=== PATIENT | female | born 1950 | race African-American/Black ===

== ENCOUNTER 2016-06-14 16:45 | Inpatient (IN) | payer MEDICARE, OTHER ==
[~2016-06-14] VITALS: Ht 170.2 cm; Wt 91.2 kg
[~2016-06-14 16:45] MED LIST: ASPIRIN EC81 MG ORAL; BUPROPION XL150 MG ORAL; CARVEDILOL6.25 MG ORAL; COUMADIN2.5 MG ORAL; DEXAMETHAS0.5 MG/51 PO; DIOVAN80 MG ORAL; EXEMESTANE25 MG PO; GABAPENTIN300 MG ORAL; LASIX20 M1 ORAL; LEVOFLOXACIN500 MG ORAL; LORATADINE10 M1 PO; MAG-OXIDE400 M1 PO; NAPROXEN500 M2 ORAL; PLAQUENIL200 MG ORAL; PRAVASTATIN SOD20 M1 ORAL; SERTRALINE HCL25 MG ORAL; SPIRONOLACTONE25 MG ORAL; TYLENOL EXTRA500 MG ORAL; ZYPREXA10 MG ORAL
[2016-06-14] MEDS ORDERED: Nitroglycerin 2% oint pkt TOPIC ONE (17:15)
[2016-06-14] MEDS ORDERED: Albuterol ud Inhalation HHN ONE (17:15)
[2016-06-14] MEDS ORDERED: Ipratropium 0.02% Inh Soln 2.5ml UD HHN ONE (17:15)
[2016-06-14 17:27] VITALS: BP 125/77
[2016-06-14 17:47] LABS: BASOPHILS % (AUTO) 1.4 % (0.0-2.0); EOSINOPHILS % (AUTO) 0.6 % (0.0-3.0); LYMPHOCYTES % (AUTO) 19.8 % (20.0-45.0); MEAN CORPUSCULAR HEMOGLOBIN 29.4 PG (27.0-31.0); MEAN CORPUSCULAR HGB CONC 31.7 G/DL (32.0-36.0); MEAN CORPUSCULAR VOLUME 93 FL (80-99); MONOCYTES % (AUTO) 5.2 % (1.0-10.0); PLATELET COUNT 212 K/UL (150-450); RED BLOOD COUNT 4.29 M/UL (4.20-5.40); RED CELL DISTRIBUTION WIDTH 14.5 % (11.6-14.8); WHITE BLOOD COUNT 7.3 K/UL (4.8-10.8)
[2016-06-14 18:04] LABS: TROPONIN I < 0.30 ng/mL (<=0.30)
[2016-06-14 18:06] LABS: APPEARANCE,URINE CLEAR; KETONES,URINE NEGATIVE (NEGATIVE); LEUKOCYTE ESTERASE ,URINE 1+ (NEGATIVE); NITRITE,URINE NEGATIVE (NEGATIVE); PH,URINE 6 (4.5-8.0); PROTEIN,URINE 2+ (NEGATIVE); UROBILINOGEN,URINE NORMAL MG/DL (0.0-1.0)
[2016-06-14 18:09] LABS: ALANINE AMINOTRANSFERASE 54 U/L (3-33); ALBUMIN/GLOBULIN RATIO 1.3 (1.0-2.7); ANION GAP 13 (5-15); ASPARTATE AMINO TRANSFERASE 45 U/L (5-40); CALCIUM 9.2 mg/dL (8.6-10.2); CARBON DIOXIDE 30 mEQ/L (20-30); CHLORIDE 98 mEQ/L (98-107); CREATININE 1.1 mg/dL (0.5-0.9); GLOMERULAR FILTRATION RATE 59.9 mL/min (>60); HEMOLYSIS 5; POTASSIUM 4.3 mEQ/L (3.4-4.9); SODIUM 141 mEQ/L (135-145); TOTAL PROTEIN 7.2 g/dL (6.6-8.7)
[2016-06-14 18:18] LABS: INR 1.4 (0.9-1.1); PROTHROMBIN TIME 13.9 SEC (9.30-11.50)
[2016-06-14 18:27] LABS: RBC,URINE 0-2 /HPF (0 - 2); WBC,URINE 0-2 /HPF (0 - 2)
[2016-06-14 18:28] LABS: BACTERIA,URINE OCCASIONAL /HPF; SQUAMOUS EPITHELIAL CELL,UR OCCASIONAL /LPF (NONE/OCC)
[2016-06-14] MEDS ORDERED: Morphine Sulfate 2mg/ml Inj IVP ONE (18:45)
--- NOTE | 2016-06-14 18:46 | Emergency Room Report ---
History of Present Illness General Chief Complaint: Dyspnea/Respdistress Source: Patient, EMS Present Illness HPI Patient presents with several days of worsening dyspnea and wheezing. His history of congestive heart failure and asthma. She's been using her inhaler at home that has not been helping. She gets extremely short of breath with minimal exertion at this time. She denies any fevers or chills. Chest pain. Somewhat pleuritic 5/10, not radiating. Bilateral knee pain, worsened. Occasionally 10/10, aching, not radiating, constant and with ambulation. Chronic DJD. Worse on R. Some swelling, no warmth, trauma. Lymphedema L arm - states LILA stocking not fit (too tight). Breast resection/ cancer in past. No IBRAHIM, rashes. Despondent over chronic condition, not suicidal. Allergies: Coded Allergies: BENAZEPRIL (Unverified Allergy, Unknown, 04/19/16) CODEINE (Unverified Allergy, Unknown, 04/19/16) HYDROCHLOROTHIAZIDE (Unverified Allergy, Unknown, 06/14/16) PENICILLINS (Unverified Allergy, Unknown, 04/19/16) PROPOXYPHENE (Unverified Allergy, Unknown, 04/19/16) Patient History Past Medical History: see triage record Past Surgical History: other - masectomy L Social History: Denies: smoking Social History Narrative From [place] Reviewed Nursing Documentation: PMH: Agreed, PSxH: Agreed Nursing Documentation-PM Past Medical History: No History, Except For Hx Cardiac Problems: Yes - Lymphadema Hx Hypertension: Yes Hx Asthma: Yes Hx COPD: Yes Hx Diabetes: Yes Hx Cancer: Yes Hx Gastrointestinal Problems: Yes - GERD Hx Memory Loss: Yes - short term memroy loss Hx Dizziness: Yes Hx Headaches: Yes Hx Numbness: Yes - Hands and Lower extremitiies Hx Weakness: Yes - Generalized weakness Hx Fatigue: Yes Review of Systems All Other Systems: negative except mentioned in HPI Physical Exam Vital Signs Date Time Temp Pulse Resp B/P Pulse Ox O2 Delivery O2 Flow Rate FiO2 06/14/16 16:44 98.4 91 16 142/92 100 Room Air Sp02 EP Interpretation: reviewed, normal General Appearance: well appearing, no apparent distress, GCS 15 Head: normocephalic Eyes: bilateral eye PERRL, bilateral eye normal inspection ENT: moist mucus membranes Neck: supple Respiratory: no accessory muscle use, wheezing, expiration Cardiovascular #1: regular rate, rhythm Cardiovascular #2: 2+ radial (R) Gastrointestinal: normal inspection, normal bowel sounds, non tender, no mass, non-distended Musculoskeletal: back normal, digits/nails normal, swelling - djd, also lymphedema L arm Neurologic: alert, oriented x3 Psychiatric: no suicidal/homicidal ideation, depressed affect Skin: normal inspection, warm/dry Medical Decision Making Diagnostic Impression: Primary Impression: CHF (congestive heart failure) Qualified Codes: I50.43 - Acute on chronic combined systolic (congestive) and diastolic (congestive) heart failure Additional Impressions: Bronchospasm Degenerative joint disease Qualified Codes: M17.0 - Bilateral primary osteoarthritis of knee ER Course Patient with dyspnea. DDx: CHF, COPD exacerbation, bronchitis, pneumonia, AMI amongst others. Emergent evaluation for AMI with labs, CXR, EKG. Treatment with beta agents and analgesia. Labs significant for normal WBC, elevated creat. No ischemia on EKG. CXR without significant CHF, though clinical exam suggests this. Patient with pain and treated. Improved but still needs obs for possible ACS and treatment for COPD. Admit med Dr. Pena. Laboratory Tests Test 06/14/16 17:23 06/14/16 18:00 White Blood Count 7.3 K/UL (4.8-10.8) Red Blood Count 4.29 M/UL (4.20-5.40) Hemoglobin 12.6 G/DL (12.0-16.0) Hematocrit 39.8 % (37.0-47.0) Mean Corpuscular Volume 93 FL (80-99) Mean Corpuscular Hemoglobin 29.4 PG (27.0-31.0) Mean Corpuscular Hemoglobin Concent 31.7 G/DL (32.0-36.0) L Red Cell Distribution Width 14.5 % (11.6-14.8) Platelet Count 212 K/UL (150-450) Mean Platelet Volume 6.0 FL (6.5-10.1) L Neutrophils (%) (Auto) 73.0 % (45.0-75.0) Lymphocytes (%) (Auto) 19.8 % (20.0-45.0) L Monocytes (%) (Auto) 5.2 % (1.0-10.0) Eosinophils (%) (Auto) 0.6 % (0.0-3.0) Basophils (%) (Auto) 1.4 % (0.0-2.0) Prothrombin Time 13.9 SEC (9.30-11.50) H Prothrombin Time INR 1.4 (0.9-1.1) H PTT 25 SEC (23-33) Sodium Level 141 mEQ/L (135-145) Potassium Level 4.3 mEQ/L (3.4-4.9) Chloride Level 98 mEQ/L (98-107) Carbon Dioxide Level 30 mEQ/L (20-30) Anion Gap 13 (5-15) Blood Urea Nitrogen 16 mg/dL (7-23) Creatinine 1.1 mg/dL (0.5-0.9) H Estimate Glomerular Filtration Rate 59.9 mL/min (>60) Glucose Level 141 mg/dL (74-106) H Calcium Level 9.2 mg/dL (8.6-10.2) Total Bilirubin 0.4 mg/dL (0.0-1.2) Aspartate Amino Transferase (AST) 45 U/L (5-40) H Alanine Aminotransferase (ALT) 54 U/L (3-33) H Alkaline Phosphatase 82 U/L (35-104) Total Creatine Kinase 200 U/L (26-140) H Troponin I < 0.30 ng/mL (<=0.30) Pro-B-Type Natriuretic Peptide 5525 pg/mL (0-125) H Total Protein 7.2 g/dL (6.6-8.7) Albumin 4.1 g/dL (3.5-5.2) Globulin 3.1 g/dL Albumin/Globulin Ratio 1.3 (1.0-2.7) Urine Color Pale yellow Urine Appearance Clear Urine pH 6 (4.5-8.0) Urine Specific [place] 1.010 (1.005-1.035) Urine Protein 2+ (NEGATIVE) H Urine Glucose (UA) Negative (NEGATIVE) Urine Ketones Negative (NEGATIVE) Urine Occult Blood Negative (NEGATIVE) Urine Nitrite Negative (NEGATIVE) Urine Bilirubin Negative (NEGATIVE) Urine Urobilinogen Normal MG/DL (0.0-1.0) Urine Leukocyte Esterase 1+ (NEGATIVE) H Urine RBC 0-2 /HPF (0 - 2) Urine WBC 0-2 /HPF (0 - 2) Urine Squamous Epithelial Cells Occasional /LPF Urine Bacteria Occasional /HPF (NONE) EKG Diagnostic Results Rate: normal Rhythm: NSR ST Segments: no acute changes Rhythm Strip Diag. Results EP Interpretation: yes Rhythm: NSR, no PVC's, other - pacs Chest X-Ray Diagnostic Results EP Interpretation: Yes Findings: no effusion, no pneumothorax, other - inc cor Number of Views: 1 Status: improved Disposition: ADMITTED INPATIENT Condition: Serious Referrals: NOT CHOSEN IPA/,REFERRING (PCP) Roni Evans M.D. Jun 14, 2016 18:46
[2016-06-14 19:21] VITALS: BP 128/81
[2016-06-14 20:00] VITALS: BP 134/83
[2016-06-14] MEDS ORDERED: BuPROPion XL 150mg tab ORAL SCH (23:15)
[2016-06-15 00:26] VITALS: BP 118/71
[2016-06-15] MEDS: Acetaminophen 500mg (ES) tab ORAL PRN (00:59)
[2016-06-15 04:13] VITALS: BP 120/67
[2016-06-15] MEDS: NovoLOG Insulin Flexpen SUBQ SCH ×4 (06:02→21:27)
[2016-06-15 08:11] VITALS: BP 112/76
[2016-06-15 08:32] LABS: BASOPHILS % (AUTO) 1.4 % (0.0-2.0); EOSINOPHILS % (AUTO) 1.3 % (0.0-3.0); LYMPHOCYTES % (AUTO) 41.2 % (20.0-45.0); MEAN CORPUSCULAR HEMOGLOBIN 29.3 PG (27.0-31.0); MEAN CORPUSCULAR HGB CONC 32.4 G/DL (32.0-36.0); MEAN CORPUSCULAR VOLUME 90 FL (80-99); MEAN PLATELET VOLUME 6.9 FL (6.5-10.1); MONOCYTES % (AUTO) 8.6 % (1.0-10.0); NEUTROPHILS % (AUTO) 47.5 % (45.0-75.0); PLATELET COUNT 203 K/UL (150-450); RED CELL DISTRIBUTION WIDTH 14.6 % (11.6-14.8); WHITE BLOOD COUNT 4.8 K/UL (4.8-10.8)
[2016-06-15 08:34] LABS: INR 1.4 (0.9-1.1)
[2016-06-15] MEDS ORDERED: Dexamethasone Elixir 0.25mg/2.5ml ORAL SCH (09:00)
[2016-06-15] MEDS ORDERED: Aspirin EC 81mg tab ORAL SCH ×2 (09:00)
[2016-06-15 09:20] LABS: TROPONIN I < 0.30 ng/mL (<=0.30)
[2016-06-15 09:21] LABS: ALANINE AMINOTRANSFERASE 45 U/L (3-33); ALBUMIN/GLOBULIN RATIO 1.4 (1.0-2.7); ANION GAP 16 (5-15); ASPARTATE AMINO TRANSFERASE 34 U/L (5-40); CALCIUM 9.2 mg/dL (8.6-10.2); CARBON DIOXIDE 26 mEQ/L (20-30); CHLORIDE 99 mEQ/L (98-107); GLOMERULAR FILTRATION RATE > 60 mL/min (>60); HEMOLYSIS 5; MAGNESIUM 1.9 mg/dL (1.7-2.5); SODIUM 141 mEQ/L (135-145); TOTAL PROTEIN 6.1 g/dL (6.6-8.7)
[2016-06-15] MEDS: Magnesium Oxide 400mg tab ORAL SCH ×2 (09:59→17:01)
[2016-06-15] MEDS: Spironolactone 25mg tab ORAL SCH (10:00)
[2016-06-15] MEDS: Sertraline 50mg tab ORAL SCH (10:01)
[2016-06-15] MEDS: BuPROPion XL 150mg tab ORAL SCH (10:08)
[2016-06-15 11:53] VITALS: BP 124/79
--- NOTE | 2016-06-15 11:58 | Diagnostic Imaging Report ---
Indication: Chest Pain Comparison: None A single view chest radiograph was obtained. Findings: No definite infiltrate or pulmonary vascular congestion identified. The heart is moderately enlarged. The aorta is mildly enlarged consistent with atherosclerotic vascular disease. The bones are osteopenic. Impression: No acute disease
--- NOTE | 2016-06-15 14:49 | Consultation ---
History of Present Illness General Date patient seen: Jun 15, 2016 Chief Complaint: Dyspnea/Respdistress Referring physician: Dr. Pena Reason for Consultation: Dyspnea Present Illness HPI 66 year old female with hx Asthma of breast cancer, treated with surgery, chemo > 10 years ago, not with recurrence and mets to lungs, presented to ER with several days of worsening dyspnea and wheezing. His history of congestive heart failure and asthma. Her nebulizers were not helping her home She was diagnosed to have CHF by ER physician and received diuretics in ER. She admitted to telemetry for further work up Allergies: Coded Allergies: BENAZEPRIL (Unverified Allergy, Unknown, 04/19/16) CODEINE (Unverified Allergy, Unknown, 04/19/16) HYDROCHLOROTHIAZIDE (Unverified Allergy, Unknown, 06/14/16) PENICILLINS (Unverified Allergy, Unknown, 04/19/16) PROPOXYPHENE (Unverified Allergy, Unknown, 04/19/16) Medication History Scheduled Aspirin Ec* (Aspirin Ec*), 81 MG ORAL DAILY, (Reported) Bupropion Xl* (Bupropion Xl*), 150 MG ORAL Q24H, (Reported) Carvedilol* (Carvedilol*), 6.25 MG ORAL EVERY 12 HOURS, (Reported) Dexamethasone (Dexamethasone), 0.5 MG PO QID, (Reported) Furosemide* (Lasix*), 20 MG ORAL DAILY, (Reported) Gabapentin* (Gabapentin*), 300 MG ORAL BEDTIME, (Reported) Hydroxychloroquine Sulfate* (Plaquenil*), 400 MG ORAL DAILY, (Reported) Loratadine (Loratadine), 10 MG PO DAILY, (Reported) Magnesium Oxide (Mag-Oxide), 400 MG PO BID, (Reported) Olanzapine* (Zyprexa*), 10 MG ORAL HS, (Reported) Pravastatin Sod* (Pravastatin Sod*), 20 MG ORAL BEDTIME, (Reported) Sertraline Hcl* (Sertraline Hcl*), 200 MG ORAL DAILY, (Reported) Spironolactone* (Aldactone*), 25 MG ORAL DAILY, (Reported) Valsartan (Diovan), 40 MG ORAL BID, (Reported) Warfarin Sod* (Coumadin*), 2.5 MG ORAL COUMADIN Scheduled PRN Acetaminophen* (Tylenol Extra Strength*), 1,000 MG ORAL Q6H PRN for Mild Pain/ Temp > 100.5, (Reported) Miscellaneous Medications Exemestane (Exemestane), 25 MG PO, (Reported) Patient History History Provided By: Patient Healthcare decision maker Resuscitation status Full Code Advanced Directive on File Past Medical/Surgical History Past Medical/Surgical History: (1) CHF (congestive heart failure) (2) Acute thrombus of left ventricle (3) Dyspnea (4) Diabetes mellitus (5) Breast cancer (6) Lung metastases Review of Systems All Other Systems: negative except mentioned in HPI Physical Exam General Appearance: WD/WN, alert Lines, tubes and drains: peripheral, central line HEENT: normocephalic, atraumatic Neck: non-tender, normal alignment Respiratory/Chest: chest wall non-tender, lungs clear Cardiovascular/Chest: normal peripheral pulses, regular rhythm Abdomen: normal bowel sounds, non tender Genitourinary/Rectal: normal genital exam Extremities: normal range of motion, non-tender Neurologic: customer contact specialist II-XII grossly normal Last 24 Hour Vital Signs Date Time Temp Pulse Resp B/P Pulse Ox O2 Delivery O2 Flow Rate FiO2 06/15/16 11:53 97.7 79 20 124/79 100 Nasal Cannula 2.0 06/15/16 10:00 75 112/76 06/15/16 08:11 97.9 75 20 112/76 97 Room Air 06/15/16 08:00 72 06/15/16 04:13 98.2 89 18 120/67 98 Room Air 06/15/16 04:00 71 06/15/16 00:26 97.5 83 20 118/71 96 Room Air 06/15/16 00:00 78 06/14/16 20:30 79 06/14/16 20:00 97.7 83 18 134/83 97 Room Air 06/14/16 19:41 98.4 84 17 128/81 98 Room Air 06/14/16 19:29 98.4 06/14/16 19:21 84 17 128/81 98 Room Air 06/14/16 17:35 125/77 06/14/16 17:32 89 17 98 Room Air 06/14/16 17:31 89 15 94 Room Air 06/14/16 17:30 89 15 Room Air 06/14/16 17:27 98.4 78 17 125/77 100 Room Air 06/14/16 17:27 91 16 Room Air 06/14/16 16:44 98.4 91 16 142/92 100 Room Air Intake and Output 06/14/16 06/15/16 19:00 07:00 # Voids 2 # Bowel Movements 2 Laboratory Tests Test 06/14/16 17:23 06/14/16 18:00 06/15/16 07:40 White Blood Count 7.3 K/UL (4.8-10.8) 4.8 K/UL (4.8-10.8) Red Blood Count 4.29 M/UL (4.20-5.40) 3.90 M/UL (4.20-5.40) L Hemoglobin 12.6 G/DL (12.0-16.0) 11.4 G/DL (12.0-16.0) L Hematocrit 39.8 % (37.0-47.0) 35.3 % (37.0-47.0) L Mean Corpuscular Volume 93 FL (80-99) 90 FL (80-99) Mean Corpuscular Hemoglobin 29.4 PG (27.0-31.0) 29.3 PG (27.0-31.0) Mean Corpuscular Hemoglobin Concent 31.7 G/DL (32.0-36.0) L 32.4 G/DL (32.0-36.0) Red Cell Distribution Width 14.5 % (11.6-14.8) 14.6 % (11.6-14.8) Platelet Count 212 K/UL (150-450) 203 K/UL (150-450) Mean Platelet Volume 6.0 FL (6.5-10.1) L 6.9 FL (6.5-10.1) Neutrophils (%) (Auto) 73.0 % (45.0-75.0) 47.5 % (45.0-75.0) Lymphocytes (%) (Auto) 19.8 % (20.0-45.0) L 41.2 % (20.0-45.0) Monocytes (%) (Auto) 5.2 % (1.0-10.0) 8.6 % (1.0-10.0) Eosinophils (%) (Auto) 0.6 % (0.0-3.0) 1.3 % (0.0-3.0) Basophils (%) (Auto) 1.4 % (0.0-2.0) 1.4 % (0.0-2.0) Prothrombin Time 13.9 SEC (9.30-11.50) H 14.0 SEC (9.30-11.50) H Prothromb Time International Ratio 1.4 (0.9-1.1) H 1.4 (0.9-1.1) H Activated Partial Thromboplast Time 25 SEC (23-33) Sodium Level 141 mEQ/L (135-145) 141 mEQ/L (135-145) Potassium Level 4.3 mEQ/L (3.4-4.9) 4.0 mEQ/L (3.4-4.9) Chloride Level 98 mEQ/L (98-107) 99 mEQ/L (98-107) Carbon Dioxide Level 30 mEQ/L (20-30) 26 mEQ/L (20-30) Anion Gap 13 (5-15) 16 (5-15) H Blood Urea Nitrogen 16 mg/dL (7-23) 19 mg/dL (7-23) Creatinine 1.1 mg/dL (0.5-0.9) H 1.0 mg/dL (0.5-0.9) H Estimat Glomerular Filtration Rate 59.9 mL/min (>60) > 60 mL/min (>60) Glucose Level 141 mg/dL (74-106) H 83 mg/dL (74-106) Calcium Level 9.2 mg/dL (8.6-10.2) 9.2 mg/dL (8.6-10.2) Total Bilirubin 0.4 mg/dL (0.0-1.2) 0.2 mg/dL (0.0-1.2) Aspartate Amino Transf (AST/SGOT) 45 U/L (5-40) H 34 U/L (5-40) Alanine Aminotransferase (ALT/SGPT) 54 U/L (3-33) H 45 U/L (3-33) H Alkaline Phosphatase 82 U/L (35-104) 75 U/L (35-104) Total Creatine Kinase 200 U/L (26-140) H Troponin I < 0.30 ng/mL (<=0.30) < 0.30 ng/mL (<=0.30) Pro-B-Type Natriuretic Peptide 5525 pg/mL (0-125) H Total Protein 7.2 g/dL (6.6-8.7) 6.1 g/dL (6.6-8.7) L Albumin 4.1 g/dL (3.5-5.2) 3.6 g/dL (3.5-5.2) Globulin 3.1 g/dL 2.5 g/dL Albumin/Globulin Ratio 1.3 (1.0-2.7) 1.4 (1.0-2.7) Urine Color Pale yellow Urine Appearance Clear Urine pH 6 (4.5-8.0) Urine Specific [place] 1.010 (1.005-1.035) Urine Protein 2+ (NEGATIVE) H Urine Glucose (UA) Negative (NEGATIVE) Urine Ketones Negative (NEGATIVE) Urine Occult Blood Negative (NEGATIVE) Urine Nitrite Negative (NEGATIVE) Urine Bilirubin Negative (NEGATIVE) Urine Urobilinogen Normal MG/DL (0.0-1.0) Urine Leukocyte Esterase 1+ (NEGATIVE) H Urine RBC 0-2 /HPF (0 - 2) Urine WBC 0-2 /HPF (0 - 2) Urine Squamous Epithelial Cells Occasional /LPF Urine Bacteria Occasional /HPF (NONE) Phosphorus Level 4.0 mg/dL (2.5-4.8) Magnesium Level 1.9 mg/dL (1.7-2.5) Height (Feet): 5 Height (Inches): 7.00 Weight (Pounds): 203 Medications Current Medications Medications (Trade) Dose Ordered Sig/Adolfo Route PRN Reason Start Time Stop Time Status Last Admin Dose Admin Acetaminophen (Tylenol) 1,000 mg Q6H PRN ORAL Mild Pain/Temp > 100.5 06/14/16 23:15 07/14/16 23:14 06/15/16 00:59 Albuterol/ Ipratropium 3 ml 3 ml Q4H PRN HHN Shortness of Breath 06/15/16 14:00 06/20/16 13:59 UNV Bupropion HCl (Wellbutrin XL) 150 mg Q24H ORAL 06/15/16 09:00 07/15/16 08:59 06/15/16 10:08 Dexamethasone (Decadron) 0.5 mg DAILY ORAL 06/15/16 09:00 07/15/16 08:59 UNV Dextrose (Dextrose 50%) STAT PRN IV Hypoglycemia 06/14/16 23:15 07/14/16 23:14 Fexofenadine HCl (Joana) 60 mg TWICE A DAY ORAL 06/15/16 09:00 07/15/16 08:59 06/15/16 10:07 Gabapentin (Neurontin) 300 mg BEDTIME ORAL 06/15/16 21:00 07/15/16 20:59 Hydroxychloroquine Sulfate (Plaquenil) 400 mg DAILY ORAL 06/15/16 09:00 07/15/16 08:59 06/15/16 10:01 Insulin Aspart (NovoLOG) BEFORE MEALS AND HS SUBQ 06/15/16 06:30 07/15/16 06:29 06/15/16 12:34 Levofloxacin (Levaquin) 100 ml @ 100 mls/hr Q24H IVPB 06/15/16 16:00 06/22/16 15:59 Magnesium Oxide (Mag-Ox 400mg) 400 mg BID ORAL 06/15/16 09:00 07/15/16 08:59 06/15/16 09:59 Methylprednisolone Sodium Succinate (Solu-MEDROL) 60 mg EVERY 6 HOURS IVP 06/15/16 14:00 07/15/16 13:59 UNV Non-Formulary Medication (Non-Formulary Med) 1 ea DAILY ORAL 06/15/16 09:00 07/15/16 08:59 UNV Olanzapine (ZyPREXA) 10 mg QHS ORAL 06/15/16 01:00 07/15/16 00:59 Pravastatin Sodium (Pravachol) 20 mg BEDTIME ORAL 06/15/16 21:00 07/15/16 20:59 Sertraline HCl (Zoloft) 200 mg DAILY ORAL 06/15/16 09:00 07/15/16 08:59 06/15/16 10:01 Spironolactone (Aldactone) 25 mg DAILY ORAL 06/15/16 09:00 07/15/16 08:59 06/15/16 10:00 Warfarin Sodium (Coumadin per pharmacy) 1 ea DAILY PRN MISC Per rx protocol 06/14/16 23:15 2/17/17 23:14 Warfarin Sodium (Coumadin) 5 mg COUMADIN ONCE ORAL 06/15/16 17:00 06/15/16 17:01 Assessment/Plan Problem List: (1) Acute asthma exacerbation ICD Codes: J45.901 - Unspecified asthma with (acute) exacerbation SNOMED: 721988361 Qualifiers: Qualified Codes: J45.31 - Mild persistent asthma with (acute) exacerbation (2) Lung metastases ICD Codes: C78.00 - Secondary malignant neoplasm of unspecified lung SNOMED: 28828031 Qualifiers: Qualified Codes: C78.00 - Secondary malignant neoplasm of unspecified lung (3) Dyspnea ICD Codes: R06.00 - Dyspnea, unspecified SNOMED: 052888584 Qualifiers: Qualified Codes: R06.02 - Shortness of breath (4) Cardiomyopathy ICD Codes: I42.9 - Cardiomyopathy, unspecified SNOMED: 38988971 (5) Anemia, chronic disease ICD Codes: D63.8 - Anemia in other chronic diseases classified elsewhere SNOMED: 644513876 Assessment/Plan respiratory treatment IV steroids doubt chf exacerbation, since cxr is clear and no pedal edema check sputum IV antibiotics symptomatic treatment. BUNNY ZURITA Jun 15, 2016 14:49
[2016-06-15 16:00] VITALS: BP 120/71
--- NOTE | 2016-06-15 16:03 | Wound Care Consultation ---
Wound Assessment Wound Assessment : Wound Number: #1 Wound Present on Admission: No New Wound: Yes Status Change of Wound: No Wound Location Body Site Modif: mid, anterior Wound Location Body Site: chest Wound Type: other - scattered skin tears without flap Sylvain Test: Does not Sylvain Wound Thickness: Partial Thickness Percent of Wound [place]/Red: 100 Wound Drainage Amount: None Wound Drainage Odor: None/Absent Tissue Surrounding Wound: Erythemic Wound General Appearance: Reddened - 100% pink wound bed, Bleeding - scant Wound Comment #1 anterior chest scattered skin tears without flap. Recommendation -Local wound care as ordered. -Minimize tape placement to skin. -Keep clean and dry. -Remind patient not to touch/scratch affected area. -Assess and follow up with MD for any changes of condition. SCOTT ANTUNEZ Jun 15, 2016 16:03
[2016-06-15] MEDS ORDERED: Warfarin Sodium 5mg ORAL ONE (17:00)
[2016-06-15] MEDS: Solu-MEDROL 125mg Inj IVP SCH ×2 (17:01→21:24)
--- NOTE | 2016-06-15 18:24 | History & Physical ---
History and Physical History & Physicial Dictated for Int Med- Dr Pena no. [id number]. SANDRA CASTILLO Jun 15, 2016 18:24
--- NOTE | 2016-06-15 19:03 | Consultation ---
Consult Note Consult Note DATE OF CONSULTATION: 06/15/16 HEMATOLOGY/ONCOLOGY CONSULTATION REQUESTING PHYSICIAN: Balta Styles M.D. IDENTIFYING DATA: Dear Dr. Balta Styles, The patient is a 66-year-old female with past medical history significant for breast cancer that metastasized to lung. She is on chemotherapy, CHF, diabetes mellitus, and hypertension at this time presents with volume overload and shortness of breath. D-dimer was elevated, began on antibiotics. was seen by patient's oncologist, Dr. eLón. The patient is known to be anemic. Therefore, Hematology service was consulted for further evaluation and treatment. Has been diuresed in the ER, noted to have likely CHF. PAST MEDICAL HISTORY: Breast cancer metastases to lung on chemotherapy, CHF, heart failure, asthma without exacerbation, diabetes mellitus, CAD, and hypertension. ALLERGIES: No known drug allergies. SOCIAL HISTORY: No alcohol, tobacco, or illicit drug use. FAMILY HISTORY: Noncontributory. REVIEW OF SYSTEMS: Constitutional: No fever, chills, or night sweats. Skin: No rashes, lumps, or itching. HEENT: No headache or vision changes. Breasts: No lumps, pain, or discharge. Pulmonary: Some shortness of breath. Cardiovascular: No chest pain, tightness, or palpitations. Gastrointestinal: No nausea, vomiting, or diarrhea. Genitourinary: No dysuria, frequency, or urgency. Musculoskeletal: No joint swelling, muscle pain, or trauma. Neurologic: No dizziness, fainting, or seizures. PHYSICAL EXAMINATION: GENERAL: The patient is in no acute distress. Last 24 Hour Vital Signs Date Time Temp Pulse Resp B/P Pulse Ox O2 Delivery O2 Flow Rate FiO2 06/15/16 16:00 97.7 79 18 120/71 Nasal Cannula 2.0 99 06/15/16 12:00 79 06/15/16 11:53 97.7 79 20 124/79 100 Nasal Cannula 2.0 06/15/16 10:00 75 112/76 06/15/16 08:11 97.9 75 20 112/76 97 Room Air 06/15/16 08:00 72 06/15/16 04:13 98.2 89 18 120/67 98 Room Air 06/15/16 04:00 71 06/15/16 00:26 97.5 83 20 118/71 96 Room Air 06/15/16 00:00 78 06/14/16 20:30 79 06/14/16 20:00 97.7 83 18 134/83 97 Room Air 06/14/16 19:41 98.4 84 17 128/81 98 Room Air 06/14/16 19:29 98.4 06/14/16 19:21 84 17 128/81 98 Room Air PULMONARY: Decreased breath sounds. CARDIOVASCULAR: Regular rate and rhythm. ABDOMEN: Soft, nontender, and nondistended EXTREMITIES: There is 1+ edema. LABORATORY AND DIAGNOSTIC DATA: Test 06/15/16 07:40 White Blood Count 4.8 K/UL (4.8-10.8) Red Blood Count 3.90 M/UL (4.20-5.40) L Hemoglobin 11.4 G/DL (12.0-16.0) L Hematocrit 35.3 % (37.0-47.0) L Mean Corpuscular Volume 90 FL (80-99) Mean Corpuscular Hemoglobin 29.3 PG (27.0-31.0) Mean Corpuscular Hemoglobin Concent 32.4 G/DL (32.0-36.0) Red Cell Distribution Width 14.6 % (11.6-14.8) Platelet Count 203 K/UL (150-450) Mean Platelet Volume 6.9 FL (6.5-10.1) Neutrophils (%) (Auto) 47.5 % (45.0-75.0) Lymphocytes (%) (Auto) 41.2 % (20.0-45.0) Monocytes (%) (Auto) 8.6 % (1.0-10.0) Eosinophils (%) (Auto) 1.3 % (0.0-3.0) Basophils (%) (Auto) 1.4 % (0.0-2.0) Prothrombin Time 14.0 SEC (9.30-11.50) H Prothromb Time International Ratio 1.4 (0.9-1.1) H Sodium Level 141 mEQ/L (135-145) Potassium Level 4.0 mEQ/L (3.4-4.9) Chloride Level 99 mEQ/L (98-107) Carbon Dioxide Level 26 mEQ/L (20-30) Anion Gap 16 (5-15) H Blood Urea Nitrogen 19 mg/dL (7-23) Creatinine 1.0 mg/dL (0.5-0.9) H Estimat Glomerular Filtration Rate > 60 mL/min (>60) Glucose Level 83 mg/dL (74-106) Calcium Level 9.2 mg/dL (8.6-10.2) Phosphorus Level 4.0 mg/dL (2.5-4.8) Magnesium Level 1.9 mg/dL (1.7-2.5) Total Bilirubin 0.2 mg/dL (0.0-1.2) Aspartate Amino Transf (AST/SGOT) 34 U/L (5-40) Alanine Aminotransferase (ALT/SGPT) 45 U/L (3-33) H Alkaline Phosphatase 75 U/L (35-104) Troponin I < 0.30 ng/mL (<=0.30) Total Protein 6.1 g/dL (6.6-8.7) L Albumin 3.6 g/dL (3.5-5.2) Globulin 2.5 g/dL Albumin/Globulin Ratio 1.4 (1.0-2.7) Assessment/Plan ASSESSMENT: 1. Anemia 2/2 malignancy, stable 8- 2. Anemia 2/2 chronic disease, has been stable 3. History of left breast cancer with metastasis to the lung and potentially to the brain, recently has been on chemotherapy with Dr. León 4. Shortness of breath most likely secondary pleural effusion and metastasis of lung disease as well as potential CHF 5. Thrombus of the left ventricle - currently is on coumadin 6. Hypertension. 7. Dyslipidemia. 8. Congestive heart failure hx 9. Cardiomyopathy. 10. DM Recommendations: - Anemia panel has been reviewed, does not require iron - Transfuse to hgb >7.5 - Coantinue coumadin - Maintain INR 2-3 - Pulmonary care followup - Diuresis as needed - DVT ppx with coumadin - GI ppx zantac - staff Thank you for this kind referral, MD Elvia Zavala Roman L. Jun 15, 2016 19:03
[2016-06-15 19:32] LABS: HEMOLYSIS 8; IRON 44 ug/dL (37-145); TOTAL IRON BINDING CAPACITY 239 ug/dL (250-400)
[2016-06-15 19:50] LABS: FERRITIN 78 ng/mL (13-150)
[2016-06-15 20:00] VITALS: BP 121/97
[2016-06-15 20:47] LABS: BAND NEUTROPHILS % (MANUAL) 0 % (0-8); BASOPHILS % (MANUAL) 0 % (0-2); EOSINOPHILS % (MANUAL) 1 % (0-3); LYMPHOCYTES % (MANUAL) 47 % (20-45); NEUTROPHILS % (MANUAL) 45 % (45-75); PLATELET ESTIMATE ADEQUATE; TOTAL CELLS COUNTED 100
[2016-06-15 20:48] LABS: ANISOCYTOSIS 1+; PLATELET MORPHOLOGY NORMAL; POLYCHROMASIA 1+
[2016-06-15 20:49] LABS: PATH BLOOD SMEAR/OMC SENT TO PATHOLOGIST
--- NOTE | 2016-06-15 21:22 | General Progress Note ---
Assessment/Plan Assessment/Plan Anemia 2/2 metastatic breast cancer to the lung and possible to the brain Anemia 2/2 chronic disease CHF was in Lasix- improved Subjective Constitutional: Reports: no symptoms HEENT: Reports: no symptoms Cardiovascular: Reports: no symptoms Respiratory: Reports: shortness of breath Gastrointestinal/Abdominal: Reports: no symptoms Genitourinary: Reports: no symptoms Allergies: Coded Allergies: BENAZEPRIL (Unverified Allergy, Unknown, 04/19/16) CODEINE (Unverified Allergy, Unknown, 04/19/16) HYDROCHLOROTHIAZIDE (Unverified Allergy, Unknown, 06/14/16) PENICILLINS (Unverified Allergy, Unknown, 04/19/16) PROPOXYPHENE (Unverified Allergy, Unknown, 04/19/16) Subjective patient is stable. No overnight event Objective Last 24 Hour Vital Signs Date Time Temp Pulse Resp B/P Pulse Ox O2 Delivery O2 Flow Rate FiO2 06/15/16 20:00 98.1 46 19 121/97 97 Room Air 06/15/16 19:40 83 16 Room Air 06/15/16 16:00 97.7 79 18 120/71 Nasal Cannula 2.0 99 06/15/16 16:00 77 06/15/16 12:00 79 06/15/16 11:53 97.7 79 20 124/79 100 Nasal Cannula 2.0 06/15/16 10:00 75 112/76 06/15/16 08:11 97.9 75 20 112/76 97 Room Air 06/15/16 08:00 72 Intake and Output 06/15/16 06/15/16 11:00 23:00 Intake Total 120 ml 120 ml Balance 120 ml 120 ml Intake Oral 120 ml 120 ml # Voids 3 2 Laboratory Tests 06/15/16 07:40: White Blood Count 4.8, Red Blood Count 3.90L, Hemoglobin 11.4L, Hematocrit 35.3L , Mean Corpuscular Volume 90, Mean Corpuscular Hemoglobin 29.3, Mean Corpuscular Hemoglobin Concent 32.4, Red Cell Distribution Width 14.6, Platelet Count 203, Mean Platelet Volume 6.9, Neutrophils (%) (Auto) 47.5, Lymphocytes (% ) (Auto) 41.2, Monocytes (%) (Auto) 8.6, Eosinophils (%) (Auto) 1.3, Basophils ( %) (Auto) 1.4, Differential Total Cells Counted 100, Neutrophils % (Manual) 45, Lymphocytes % (Manual) 47H, Monocytes % (Manual) 7, Eosinophils % (Manual) 1, Basophils % (Manual) 0, Band Neutrophils 0, Platelet Estimate Adequate, Platelet Morphology Normal, Polychromasia 1+, Anisocytosis 1+, Reticulocyte Count 1.6, Prothrombin Time 14.0H, Prothromb Time International Ratio 1.4H, Sodium Level 141, Potassium Level 4.0, Chloride Level 99, Carbon Dioxide Level 26, Anion Gap 16H, Blood Urea Nitrogen 19, Creatinine 1.0H, Estimat Glomerular Filtration Rate > 60, Glucose Level 83, Calcium Level 9.2, Phosphorus Level 4.0 , Magnesium Level 1.9, Iron Level 44, Total Iron Binding Capacity 239L, Percent Iron Saturation 18, Unsaturated Iron Binding 195, Ferritin 78, Total Bilirubin 0.2, Aspartate Amino Transf (AST/SGOT) 34, Alanine Aminotransferase (ALT/SGPT) 45H, Alkaline Phosphatase 75, Troponin I < 0.30, Total Protein 6.1L, Albumin 3.6 , Globulin 2.5, Albumin/Globulin Ratio 1.4 Height (Feet): 5 Height (Inches): 7.00 Weight (Pounds): 203 General Appearance: no apparent distress EENT: PERRL/EOMI Neck: supple Cardiovascular: normal rate, regular rhythm Respiratory/Chest: lungs clear Abdomen: non tender, soft Extremities: non-tender Edema: 1+ Leg (L), 1+ Leg (R) Neurologic: alert Skin: warm/dry Brandon Gan Jun 15, 2016 21:22
--- NOTE | 2016-06-15 21:48 | General Progress Note ---
Assessment/Plan Assessment/Plan 1. Anemia 2/2 chronic disease, Malignancy 2. History of Breast Ca with metastasis to the lung and maybe the brain 3. Thrombus in the left Ventricle--- on Coumadin 4. Shortness of Breath likely due to pleural effusion and metastasis- improving 5. Hypertension 6. Diabetes 7. Cardiomegaly 8. Dyslipidemia Recommendation -Transfusion to hgb> 7.5 - continue on Coumadi -Maintain INR 2-3 - GI ppx zantac - Diuresis as needed Subjective Constitutional: Reports: no symptoms HEENT: Reports: no symptoms Cardiovascular: Reports: no symptoms Respiratory: Reports: no symptoms Gastrointestinal/Abdominal: Reports: no symptoms Genitourinary: Reports: no symptoms Endocrine: Reports: increased urine, no symptoms Allergies: Coded Allergies: BENAZEPRIL (Unverified Allergy, Unknown, 04/19/16) CODEINE (Unverified Allergy, Unknown, 04/19/16) HYDROCHLOROTHIAZIDE (Unverified Allergy, Unknown, 06/14/16) PENICILLINS (Unverified Allergy, Unknown, 04/19/16) PROPOXYPHENE (Unverified Allergy, Unknown, 04/19/16) Subjective patient is stable. No overnight event Objective Last 24 Hour Vital Signs Date Time Temp Pulse Resp B/P Pulse Ox O2 Delivery O2 Flow Rate FiO2 06/15/16 20:00 98.1 46 19 121/97 97 Room Air 06/15/16 19:40 83 16 Room Air 06/15/16 16:00 97.7 79 18 120/71 Nasal Cannula 2.0 99 06/15/16 16:00 77 06/15/16 12:00 79 06/15/16 11:53 97.7 79 20 124/79 100 Nasal Cannula 2.0 06/15/16 10:00 75 112/76 06/15/16 08:11 97.9 75 20 112/76 97 Room Air 06/15/16 08:00 72 Intake and Output 06/15/16 06/15/16 11:00 23:00 Intake Total 120 ml 120 ml Balance 120 ml 120 ml Intake Oral 120 ml 120 ml # Voids 3 2 Laboratory Tests 06/15/16 07:40: White Blood Count 4.8, Red Blood Count 3.90L, Hemoglobin 11.4L, Hematocrit 35.3L , Mean Corpuscular Volume 90, Mean Corpuscular Hemoglobin 29.3, Mean Corpuscular Hemoglobin Concent 32.4, Red Cell Distribution Width 14.6, Platelet Count 203, Mean Platelet Volume 6.9, Neutrophils (%) (Auto) 47.5, Lymphocytes (% ) (Auto) 41.2, Monocytes (%) (Auto) 8.6, Eosinophils (%) (Auto) 1.3, Basophils ( %) (Auto) 1.4, Differential Total Cells Counted 100, Neutrophils % (Manual) 45, Lymphocytes % (Manual) 47H, Monocytes % (Manual) 7, Eosinophils % (Manual) 1, Basophils % (Manual) 0, Band Neutrophils 0, Platelet Estimate Adequate, Platelet Morphology Normal, Polychromasia 1+, Anisocytosis 1+, Reticulocyte Count 1.6, Prothrombin Time 14.0H, Prothromb Time International Ratio 1.4H, Sodium Level 141, Potassium Level 4.0, Chloride Level 99, Carbon Dioxide Level 26, Anion Gap 16H, Blood Urea Nitrogen 19, Creatinine 1.0H, Estimat Glomerular Filtration Rate > 60, Glucose Level 83, Calcium Level 9.2, Phosphorus Level 4.0 , Magnesium Level 1.9, Iron Level 44, Total Iron Binding Capacity 239L, Percent Iron Saturation 18, Unsaturated Iron Binding 195, Ferritin 78, Total Bilirubin 0.2, Aspartate Amino Transf (AST/SGOT) 34, Alanine Aminotransferase (ALT/SGPT) 45H, Alkaline Phosphatase 75, Troponin I < 0.30, Total Protein 6.1L, Albumin 3.6 , Globulin 2.5, Albumin/Globulin Ratio 1.4 Height (Feet): 5 Height (Inches): 7.00 Weight (Pounds): 203 General Appearance: no apparent distress EENT: PERRL/EOMI Neck: supple Cardiovascular: normal rate, regular rhythm Respiratory/Chest: no respiratory distress Abdomen: non tender, soft Extremities: non-tender Edema: 1+ Leg (L), 1+ Leg (R) Brandon Gan Jun 15, 2016 21:47
--- NOTE | 2016-06-15 22:57 | History and Physical Report ---
DATE OF ADMISSION: 06/14/[address] Pena. CHIEF COMPLAINT: The patient is a 66-year-old, female with history of breast cancer with metastases, who presents with complaint of shortness of breath. HISTORY OF PRESENT ILLNESS: The patient was admitted to [facility] on 03/2016 under a similar situation. The patient was diagnosed with congestive heart failure and cardiomyopathy at that time. The patient essentially failed to followup after the March stay. History of present illness began one day prior to admission. The patient began to experience shortness of breath. The patient also has some chest tightness. The patient presented to [facility] emergency room. BNP was found to be elevated over 5000. The patient was admitted for congestive heart failure. PAST MEDICAL HISTORY: Significant for. 1. Congestive heart failure. 2. Cardiomyopathy. 3. History of left breast cancer in 1998, status post lumpectomy, radiation therapy, and chemotherapy. 4. Diabetes type 2. 5. Hypertension. 6. Hypercholesterolemia. 7. Chronic low back pain. PAST SURGICAL HISTORY: Significant for. 1. Breast lumpectomy in 1998, as above. 2. Bladder suspension in 1991. CURRENT MEDICATIONS: 1. Aspirin 81 mg one tablet p.o. daily. 2. Wellbutrin XL 150 mg one tablet p.o. daily. 3. Carvedilol 6.25 mg one tablet p.o. twice daily. 4. Dexamethasone 0.5 mg one tablet p.o. q.i.d. 5. Exemestane 25 mg one tablet p.o. daily. 6. Lasix 20 mg one tablet p.o. daily. 7. Gabapentin 300 mg one tablet p.o. q.h.s. 8. Plaquenil 40 mg one tablet p.o. daily. 9. Claritin 10 mg one tablet p.o. daily. 10. Magnesium oxide 400 mg one tablet p.o. twice daily. 11. Zyprexa 10 mg one tablet p.o. q.h.s. 12. Pravachol 20 mg one tablet p.o. q.h.s. 13. Zoloft 200 mg one tablet p.o. daily. 14. Aldactone 25 mg one tablet p.o. daily. 15. Valsartan 80 mg once a day. 16. Diovan 40 mg one tablet p.o. twice daily. 17. Coumadin 2.5 mg one tablet p.o. daily. ALLERGIES: 1. Benazepril. 2. Codeine. 3. Penicillin. 4. Darvocet. 5. Possibly hydrochlorothiazide. SOCIAL HISTORY: The patient is , however, has 7 grown children, who live throughout the [place]. The patient denies tobacco or alcohol use. REVIEW OF SYSTEMS: Constitutional: The patient denies weight loss or weight gain. The patient denies fevers or chills. HEENT: The patient denies ear or throat pain. Cardiovascular: The patient complains of chest tightness as above. The patient denies palpitations. Chest: The patient complains of shortness of breath as above. The patient denies wheezes. Abdomen: The patient complains of some bilateral upper quadrant pain. Otherwise, without nausea, vomiting, diarrhea, or constipation. Genitourinary: The patient denies dysuria or increased frequency of urination. Neuromuscular: The patient denies seizures or generalized weakness. PHYSICAL EXAMINATION: VITAL SIGNS: Temperature 97.9 degrees, respirations 20, pulse 75, blood pressure 112/76, and pulse ox 97% on room air. GENERAL: The patient is a well-developed, well-nourished, slightly obese, female, in no apparent distress. HEENT: Eyes, pupils are equal and responsive to light and accommodation. Extraocular movements are intact. NECK: Supple without lymphadenopathy. CHEST: Decreased breath sounds bilateral at bases without wheezes. There are crackles 1/[address] each the bilateral bases. Otherwise, clear to auscultation bilaterally without wheezes or rales. CARDIOVASCULAR: Regular rate. S1 and S2. No murmurs, rubs, or gallops. ABDOMEN: Soft, nontender, and nondistended. Positive bowel sounds. No evidence of hepatosplenomegaly. Currently, no rebound or guarding noted. EXTREMITIES: Negative for clubbing, cyanosis, or edema. RECTAL: Refused. GENITAL: Refused. NEUROLOGIC: Cranial nerves II through XII are grossly intact without focal deficits. Motor strength is 5/5 bilaterally. Deep tendon reflexes 2+ plantar. LABORATORY STUDIES: WBC 7.31, hemoglobin 12.6, hematocrit 39.8, and platelets 212,000. Sodium 141, potassium 4.3, chloride 98, CO2 30, BUN 16, creatinine 1.1, and glucose 141. BNP elevated at 5525. Troponin is less than 0.3. An echocardiogram is pending. Chest x-ray revealed increased pulmonary vascular consistent with congestive heart failure. ASSESSMENT: This is a 66-year-old female. 1. Shortness of breath. 2. Congestive heart failure. 3. Breast cancer with metastases to the lung. 4. Diabetes type 2. 5. Hypertension. 6. Hypercholesterolemia. 7. Chronic low back pain. TREATMENT: 1. Shortness of breath/congestive heart failure. Cardiology consultation was obtained with Dr. Marin Escalera. An echocardiogram is pending. The patient will receive intravenous Lasix. We will follow recommendations of Cardiology. Serial BNPs will be run. Serial troponin levels will be run to rule out acute coronary syndrome. 2. Chest pain as above. Cardiology consultation was obtained with Dr. Marin Escalera. 3. Diabetes type 2. The patient is currently on a NovoLog sliding scale. 4. Hypertension. Continue Coreg as above. 5. Hypercholesterolemia. Continue pravastatin as above. 6. Chronic low back pain. Balta Styles M.D. DR: YAZMIN JOB#: [id number] CC:
[2016-06-16] MEDS: Solu-MEDROL 125mg Inj IVP SCH ×4 (00:37→22:35)
[2016-06-16 00:40] VITALS: BP 137/81
[2016-06-16 04:31] VITALS: BP 128/82
[2016-06-16] MEDS: NovoLOG Insulin Flexpen SUBQ SCH ×4 (06:36→22:38)
[2016-06-16 07:56] VITALS: BP 123/73
[2016-06-16 07:57] LABS: BASOPHILS % (AUTO) 0.1 % (0.0-2.0); LYMPHOCYTES % (AUTO) 15.9 % (20.0-45.0); MEAN CORPUSCULAR HEMOGLOBIN 28.3 PG (27.0-31.0); MEAN CORPUSCULAR HGB CONC 31.3 G/DL (32.0-36.0); MEAN CORPUSCULAR VOLUME 90 FL (80-99); MEAN PLATELET VOLUME 6.7 FL (6.5-10.1); MONOCYTES % (AUTO) 1.2 % (1.0-10.0); NEUTROPHILS % (AUTO) 82.7 % (45.0-75.0); PLATELET COUNT 205 K/UL (150-450); RED BLOOD COUNT 4.24 M/UL (4.20-5.40); RED CELL DISTRIBUTION WIDTH 14.4 % (11.6-14.8); WHITE BLOOD COUNT 5.2 K/UL (4.8-10.8)
[2016-06-16 08:05] LABS: TROPONIN I < 0.30 ng/mL (<=0.30)
[2016-06-16 08:08] LABS: ANION GAP 14 (5-15); CALCIUM 9.4 mg/dL (8.6-10.2); CARBON DIOXIDE 27 mEQ/L (20-30); CHLORIDE 99 mEQ/L (98-107); GLOMERULAR FILTRATION RATE > 60 mL/min (>60); HEMOLYSIS 2; POTASSIUM 4.4 mEQ/L (3.4-4.9); SODIUM 140 mEQ/L (135-145)
[2016-06-16 08:16] LABS: INR 1.4 (0.9-1.1); PROTHROMBIN TIME 14.1 SEC (9.30-11.50)
[2016-06-16] MEDS: Spironolactone 25mg tab ORAL SCH (09:19)
[2016-06-16] MEDS: BuPROPion XL 150mg tab ORAL SCH (09:19)
[2016-06-16] MEDS: Magnesium Oxide 400mg tab ORAL SCH ×2 (09:19→17:06)
[2016-06-16] MEDS: Sertraline 50mg tab ORAL SCH (09:19)
[2016-06-16 11:56] VITALS: BP 128/76
--- NOTE | 2016-06-16 14:49 | Internal Med Progress Note ---
Subjective Physician Name Gen Pena Attending Physician Gen Pena MD Current Medications Medications (Trade) Dose Ordered Sig/Adolfo Route PRN Reason Start Time Stop Time Status Last Admin Dose Admin Acetaminophen (Tylenol) 1,000 mg Q6H PRN ORAL Mild Pain/Temp > 100.5 06/14/16 23:15 07/14/16 23:14 06/15/16 00:59 Albuterol/ Ipratropium 3 ml 3 ml Q4H PRN HHN Shortness of Breath 06/15/16 14:00 06/20/16 13:59 Bupropion HCl (Wellbutrin XL) 150 mg Q24H ORAL 06/15/16 09:00 07/15/16 08:59 06/16/16 09:19 Dexamethasone (Decadron) 0.5 mg DAILY ORAL 06/15/16 09:00 07/15/16 08:59 UNV Dextrose (Dextrose 50%) STAT PRN IV Hypoglycemia 06/14/16 23:15 07/14/16 23:14 Fexofenadine HCl (Joana) 60 mg TWICE A DAY ORAL 06/15/16 09:00 07/15/16 08:59 06/16/16 09:19 Gabapentin (Neurontin) 300 mg BEDTIME ORAL 06/15/16 21:00 07/15/16 20:59 06/15/16 21:24 Hydroxychloroquine Sulfate (Plaquenil) 400 mg DAILY ORAL 06/15/16 09:00 07/15/16 08:59 06/16/16 09:18 Insulin Aspart (NovoLOG) BEFORE MEALS AND HS SUBQ 06/15/16 06:30 07/15/16 06:29 06/16/16 11:55 Levofloxacin (Levaquin) 100 ml @ 100 mls/hr Q24H IVPB 06/15/16 16:00 06/22/16 15:59 06/15/16 17:01 Magnesium Oxide (Mag-Ox 400mg) 400 mg BID ORAL 06/15/16 09:00 07/15/16 08:59 06/16/16 09:19 Methylprednisolone Sodium Succinate (Solu-MEDROL) 60 mg EVERY 6 HOURS IVP 06/15/16 15:45 07/15/16 15:44 06/16/16 11:57 Non-Formulary Medication (Non-Formulary Med) 1 ea DAILY ORAL 06/15/16 09:00 07/15/16 08:59 UNV Olanzapine (ZyPREXA) 10 mg QHS ORAL 06/15/16 01:00 07/15/16 00:59 06/15/16 21:24 Pravastatin Sodium (Pravachol) 20 mg BEDTIME ORAL 06/15/16 21:00 07/15/16 20:59 Sertraline HCl (Zoloft) 200 mg DAILY ORAL 06/15/16 09:00 07/15/16 08:59 06/16/16 09:19 Spironolactone (Aldactone) 25 mg DAILY ORAL 06/15/16 09:00 07/15/16 08:59 06/16/16 09:19 Warfarin Sodium (Coumadin per pharmacy) 1 ea DAILY PRN MISC Per rx protocol 06/14/16 23:15 07/14/16 23:14 Warfarin Sodium/ Warfarin Sodium (Coumadin/ Coumadin) 3.5 mg COUMADIN ONCE ORAL 06/16/16 17:00 06/16/16 17:01 Allergies: Coded Allergies: BENAZEPRIL (Unverified Allergy, Unknown, 04/19/16) CODEINE (Unverified Allergy, Unknown, 04/19/16) HYDROCHLOROTHIAZIDE (Unverified Allergy, Unknown, 06/14/16) PENICILLINS (Unverified Allergy, Unknown, 04/19/16) PROPOXYPHENE (Unverified Allergy, Unknown, 04/19/16) Subjective awake, alert, less SOB but worsening with minimal eversion, No CP Objective Last Vital Signs Date Time Temp Pulse Resp B/P Pulse Ox O2 Delivery O2 Flow Rate FiO2 06/16/16 11:56 97.0 90 20 128/76 95 Room Air 06/15/16 16:00 2.0 99 Laboratory Tests Test 06/16/16 06:05 White Blood Count 5.2 K/UL (4.8-10.8) Red Blood Count 4.24 M/UL (4.20-5.40) Hemoglobin 12.0 G/DL (12.0-16.0) Hematocrit 38.3 % (37.0-47.0) Mean Corpuscular Volume 90 FL (80-99) Mean Corpuscular Hemoglobin 28.3 PG (27.0-31.0) Mean Corpuscular Hemoglobin Concent 31.3 G/DL (32.0-36.0) L Red Cell Distribution Width 14.4 % (11.6-14.8) Platelet Count 205 K/UL (150-450) Mean Platelet Volume 6.7 FL (6.5-10.1) Neutrophils (%) (Auto) 82.7 % (45.0-75.0) H Lymphocytes (%) (Auto) 15.9 % (20.0-45.0) L Monocytes (%) (Auto) 1.2 % (1.0-10.0) Eosinophils (%) (Auto) 0.0 % (0.0-3.0) Basophils (%) (Auto) 0.1 % (0.0-2.0) Prothrombin Time 14.1 SEC (9.30-11.50) H Prothromb Time International Ratio 1.4 (0.9-1.1) H Sodium Level 140 mEQ/L (135-145) Potassium Level 4.4 mEQ/L (3.4-4.9) Chloride Level 99 mEQ/L (98-107) Carbon Dioxide Level 27 mEQ/L (20-30) Anion Gap 14 (5-15) Blood Urea Nitrogen 22 mg/dL (7-23) Creatinine 1.0 mg/dL (0.5-0.9) H Estimat Glomerular Filtration Rate > 60 mL/min (>60) Glucose Level 170 mg/dL (74-106) H Calcium Level 9.4 mg/dL (8.6-10.2) Troponin I < 0.30 ng/mL (<=0.30) Pro-B-Type Natriuretic Peptide 4656 pg/mL (0-125) H Intake and Output 06/15/16 06/16/16 19:00 07:00 Intake Total 340 ml Balance 340 ml Intake Oral 240 ml IV Total 100 ml # Voids 3 2 Objective GENERAL: The patient is a well-developed, well-nourished, slightly obese, female, in no apparent distress. HEENT: Eyes, pupils are equal and responsive to light and accommodation. Extraocular movements are intact. NECK: Supple without lymphadenopathy. CHEST: Decreased breath sounds bilateral at bases without wheezes. CARDIOVASCULAR: Regular rate. S1 and S2. No murmurs, ABDOMEN: Soft, nontender, and nondistended. Positive bowel sounds. Obesity. EXTREMITIES: Negative for clubbing, cyanosis, or edema. left UE +2 edema. RECTAL: Refused. GENITAL: Refused. NEUROLOGIC: Cranial nerves II through XII are grossly intact without focal deficits. Motor strength is 5/5 bilaterally. Assessment/Plan Assessment/Plan 1. Shortness of breath most likely due to asthma excerbation. 2. Chronic Congestive heart failure. 3. Breast cancer with metastases to the lung. 4. Diabetes type 2. 5. Hypertension. 6. Hypercholesterolemia. 7. Chronic low back pain. 8. Morbid Obesity 9. Chronic Left UE lymphopathy Plan: on Coumadin Solumedral IV Neb Tx Abx: Levaquin IV home O2 Gen Pena MD Jun 16, 2016 14:49
--- NOTE | 2016-06-16 14:51 | Pulmonology Progress Note ---
Assessment/Plan Problems: (1) Acute asthma exacerbation (2) Lung metastases (3) Dyspnea (4) Cardiomyopathy (5) Anemia, chronic disease Assessment/Plan improving decrease solumedrol sputum still pending check electrolytes dc planning 1-2 Subjective ROS Limited/Unobtainable: No Constitutional: Reports: no symptoms HEENT: Repors: no symptoms Respiratory: Reports: no symptoms Allergies: Coded Allergies: BENAZEPRIL (Unverified Allergy, Unknown, 04/19/16) CODEINE (Unverified Allergy, Unknown, 04/19/16) HYDROCHLOROTHIAZIDE (Unverified Allergy, Unknown, 06/14/16) PENICILLINS (Unverified Allergy, Unknown, 04/19/16) PROPOXYPHENE (Unverified Allergy, Unknown, 04/19/16) Objective Last 24 Hour Vital Signs Date Time Temp Pulse Resp B/P Pulse Ox O2 Delivery O2 Flow Rate FiO2 06/16/16 11:56 97.0 90 20 128/76 95 Room Air 06/16/16 08:00 82 06/16/16 07:56 97.3 96 18 123/73 96 Room Air 06/16/16 04:31 98.4 86 18 128/82 96 Room Air 06/16/16 04:00 84 06/16/16 00:40 98.6 87 19 137/81 95 Room Air 06/16/16 00:00 87 06/15/16 20:00 98.1 46 19 121/97 97 Room Air 06/15/16 20:00 81 06/15/16 19:40 83 16 Room Air 06/15/16 16:00 97.7 79 18 120/71 Nasal Cannula 2.0 99 06/15/16 16:00 77 Intake and Output 06/15/16 06/16/16 19:00 07:00 Intake Total 340 ml Balance 340 ml Intake Oral 240 ml IV Total 100 ml # Voids 3 2 General Appearance: WD/WN HEENT: normocephalic Respiratory/Chest: chest wall non-tender, lungs clear Cardiovascular: normal peripheral pulses, normal rate Abdomen: normal bowel sounds, soft, non tender Genitourinary: normal external genitalia Extremities: no cyanosis 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 Laboratory Tests 06/16/16 06:05: White Blood Count 5.2, Red Blood Count 4.24, Hemoglobin 12.0, Hematocrit 38.3, Mean Corpuscular Volume 90, Mean Corpuscular Hemoglobin 28.3, Mean Corpuscular Hemoglobin Concent 31.3L, Red Cell Distribution Width 14.4, Platelet Count 205, Mean Platelet Volume 6.7, Neutrophils (%) (Auto) 82.7H, Lymphocytes (%) (Auto) 15.9L, Monocytes (%) (Auto) 1.2, Eosinophils (%) (Auto) 0.0, Basophils (%) (Auto ) 0.1, Prothrombin Time 14.1H, Prothromb Time International Ratio 1.4H, Sodium Level 140, Potassium Level 4.4, Chloride Level 99, Carbon Dioxide Level 27, Anion Gap 14, Blood Urea Nitrogen 22, Creatinine 1.0H, Estimat Glomerular Filtration Rate > 60, Glucose Level 170H, Calcium Level 9.4, Troponin I < 0.30, Pro-B-Type Natriuretic Peptide 4656H Current Medications Medications (Trade) Dose Ordered Sig/Adolfo Route PRN Reason Start Time Stop Time Status Last Admin Dose Admin Acetaminophen (Tylenol) 1,000 mg Q6H PRN ORAL Mild Pain/Temp > 100.5 06/14/16 23:15 07/14/16 23:14 06/15/16 00:59 Albuterol/ Ipratropium 3 ml 3 ml Q4H PRN HHN Shortness of Breath 06/15/16 14:00 06/20/16 13:59 Bupropion HCl (Wellbutrin XL) 150 mg Q24H ORAL 06/15/16 09:00 07/15/16 08:59 06/16/16 09:19 Dextrose (Dextrose 50%) STAT PRN IV Hypoglycemia 06/14/16 23:15 07/14/16 23:14 Fexofenadine HCl (Joana) 60 mg TWICE A DAY ORAL 06/15/16 09:00 07/15/16 08:59 06/16/16 09:19 Gabapentin (Neurontin) 300 mg BEDTIME ORAL 06/15/16 21:00 07/15/16 20:59 06/15/16 21:24 Hydroxychloroquine Sulfate (Plaquenil) 400 mg DAILY ORAL 06/15/16 09:00 07/15/16 08:59 06/16/16 09:18 Insulin Aspart (NovoLOG) BEFORE MEALS AND HS SUBQ 06/15/16 06:30 07/15/16 06:29 06/16/16 11:55 Levofloxacin (Levaquin) 100 ml @ 100 mls/hr Q24H IVPB 06/15/16 16:00 06/22/16 15:59 06/15/16 17:01 Magnesium Oxide (Mag-Ox 400mg) 400 mg BID ORAL 06/15/16 09:00 07/15/16 08:59 06/16/16 09:19 Methylprednisolone Sodium Succinate (Solu-MEDROL) 60 mg EVERY 6 HOURS IVP 06/15/16 15:45 07/15/16 15:44 06/16/16 11:57 Non-Formulary Medication (Non-Formulary Med) 1 ea DAILY ORAL 06/15/16 09:00 07/15/16 08:59 UNV Olanzapine (ZyPREXA) 10 mg QHS ORAL 06/15/16 01:00 07/15/16 00:59 06/15/16 21:24 Pravastatin Sodium (Pravachol) 20 mg BEDTIME ORAL 06/15/16 21:00 07/15/16 20:59 Sertraline HCl (Zoloft) 200 mg DAILY ORAL 06/15/16 09:00 07/15/16 08:59 06/16/16 09:19 Spironolactone (Aldactone) 25 mg DAILY ORAL 06/15/16 09:00 07/15/16 08:59 06/16/16 09:19 Warfarin Sodium (Coumadin per pharmacy) 1 ea DAILY PRN MISC Per rx protocol 06/14/16 23:15 07/14/16 23:14 Warfarin Sodium/ Warfarin Sodium (Coumadin/ Coumadin) 3.5 mg COUMADIN ONCE ORAL 06/16/16 17:00 06/16/16 17:01 BUNNY ZURITA Jun 16, 2016 14:51
[2016-06-16 16:00] VITALS: BP 113/70
[2016-06-16] MEDS ORDERED: WARFARIN SOD ORAL ONE ×2 (17:00)
--- NOTE | 2016-06-16 18:32 | General Progress Note ---
Assessment/Plan Assessment/Plan 1. 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 Has been on Chemotherapy 3. Anemia to du chronic disease 4. Thrombus in the left Ventricle--- on Coumadin 5.. Shortness of Breath likely due to pleural effusion and metastasis- improving 6. Shortness of breath due to asthma exacerbation 7. Diabetes 8. Cardiomegale 9. Hypertensio 10. Dyslipidemia Recommendation - continue on Coumadin -Maintain INR 2-3 -Transfusion to hgb> 7.5 - GI ppx zantac - Diuresis as needed Subjective Constitutional: Reports: no symptoms HEENT: Reports: no symptoms Cardiovascular: Reports: no symptoms Respiratory: Reports: no symptoms Gastrointestinal/Abdominal: Reports: no symptoms Genitourinary: Reports: no symptoms Neurologic/Psychiatric: Reports: no symptoms Endocrine: Reports: no symptoms Hematologic/Lymphatic: Reports: anemia Allergies: Coded Allergies: BENAZEPRIL (Unverified Allergy, Unknown, 04/19/16) CODEINE (Unverified Allergy, Unknown, 04/19/16) HYDROCHLOROTHIAZIDE (Unverified Allergy, Unknown, 06/14/16) PENICILLINS (Unverified Allergy, Unknown, 04/19/16) PROPOXYPHENE (Unverified Allergy, Unknown, 04/19/16) Subjective patient is stable. No overnight event Objective Last 24 Hour Vital Signs Date Time Temp Pulse Resp B/P Pulse Ox O2 Delivery O2 Flow Rate FiO2 06/16/16 16:00 98.1 85 16 113/70 98 Nasal Cannula 2.5 06/16/16 11:56 97.0 90 20 128/76 95 Room Air 06/16/16 08:00 82 06/16/16 07:56 97.3 96 18 123/73 96 Room Air 06/16/16 04:31 98.4 86 18 128/82 96 Room Air 06/16/16 04:00 84 Intake and Output 06/16/16 06/16/16 11:00 23:00 Intake Total 120 ml 120 ml Balance 120 ml 120 ml Intake Oral 120 ml 120 ml # Voids 3 2 Laboratory Tests 06/16/16 06:05: White Blood Count 5.2, Red Blood Count 4.24, Hemoglobin 12.0, Hematocrit 38.3, Mean Corpuscular Volume 90, Mean Corpuscular Hemoglobin 28.3, Mean Corpuscular Hemoglobin Concent 31.3L, Red Cell Distribution Width 14.4, Platelet Count 205, Mean Platelet Volume 6.7, Neutrophils (%) (Auto) 82.7H, Lymphocytes (%) (Auto) 15.9L, Monocytes (%) (Auto) 1.2, Eosinophils (%) (Auto) 0.0, Basophils (%) (Auto ) 0.1, Prothrombin Time 14.1H, Prothromb Time International Ratio 1.4H, Sodium Level 140, Potassium Level 4.4, Chloride Level 99, Carbon Dioxide Level 27, Anion Gap 14, Blood Urea Nitrogen 22, Creatinine 1.0H, Estimat Glomerular Filtration Rate > 60, Glucose Level 170H, Calcium Level 9.4, Troponin I < 0.30, Pro-B-Type Natriuretic Peptide 4656H Height (Feet): 5 Height (Inches): 7.00 Weight (Pounds): 203 General Appearance: no apparent distress EENT: PERRL/EOMI Neck: supple Cardiovascular: normal rate Respiratory/Chest: no respiratory distress Abdomen: soft Edema: 1+ Leg (L), 1+ Leg (R) Skin: warm/dry Brandon Gan Jun 16, 2016 18:32
[2016-06-16 20:00] VITALS: BP 120/73
--- NOTE | 2016-06-17 00:07 | Consultation ---
DATE OF CONSULTATION: 06/16/2016 CARDIOLOGY CONSULTATION REFERRING PHYSICIAN: Balta Styles M.D. REASON FOR CONSULTATION: Management of heart failure and dyspnea. HISTORY OF PRESENT ILLNESS: The patient is a very pleasant, 66-year-old, female, who is known to me, presents to this hospital with several days of worsening of dyspnea on exertion as well as wheezing and generalized body pain. She denies any fever or chill, but she complains of cough intermittently. Her cardiac history is significant for history of nonischemic cardiomyopathy with left ventricular ejection fraction less than 35% as well as history of diastolic heart failure with restrictive left ventricular physiology. She states that she has been taking her heart failure regimen religiously. She has also been complaining of left upper extremity edema as well as bilateral lower extremity pain. PAST MEDICAL HISTORY: Significant for, 1. History of left breast cancer, status post lumpectomy and chemoradiation therapy. 2. Left upper extremity lymphedema. 3. History of nonischemic cardiomyopathy with left ventricular ejection fraction at approximately 20%. History of diabetes mellitus. 4. History of hypertension. 5. History of dyslipidemia. 6. History of chronic lower back pain due to work injury. PAST SURGICAL HISTORY: 1. Tubal ligation. 2. Bladder suspension. ALLERGIES: Benazepril, codeine, penicillin, and propoxyphene. SOCIAL HISTORY: Denies any tobacco, alcohol, or illicit drug use. She is retired and disabled. FAMILY HISTORY: Father of old age because of myocardial infarction. Brother also has history of coronary artery disease. REVIEW OF SYSTEMS: HEENT: Denies any headache, diplopia, or blurred vision. Constitutional: Complains of generalized weakness, but no fever, chills, or night sweats. Cardiovascular: Complaints of shortness of breath with exertion and associated chest pain. No PND or orthopnea, but she has been complaining of leg pain as well as left upper extremity swelling. Pulmonary: She has some intermittent cough and shortness of breath, but no hemoptysis. Gastrointestinal: Denies any nausea, vomiting, diarrhea, constipation, or abdominal pain, although she feels that the abdomen is increasing in size. Genitourinary: Denies any hematuria, dysuria, or incontinence. Neurology: Denies any motor dysfunction, sensory deficits, or altered speech. Musculoskeletal: Complaining of left upper extremity swelling as well as bilateral knee pain as well as bilateral leg pain. LIST OF MEDICATIONS: 1. Aspirin 81 mg p.o. daily. 2. Tylenol 1000 mg p.o. q.6 h. p.r.n. pain and temperature above 100.5. 3. Bupropion 150 mg q.24 h. 4. Carvedilol 6.25 mg twice daily. 5. Dexamethasone 0.5 mg p.o. q.i.d. 6. Exemestane 25 mg p.o. daily. 7. Furosemide 20 mg p.o. daily. 8. Gabapentin 300 mg p.o. at bedtime. 9. Plaquenil 400 mg p.o. daily. 10. Loratadine 10 mg p.o. daily. 11. Magnesium oxide 400 mg p.o. twice daily. 12. Zyprexa 10 mg p.o. at bedtime. 13. Pravastatin 20 mg p.o. at bedtime. 14. Sertraline 200 mg p.o. daily. 15. Aldactone 25 mg p.o. daily. 16. Valsartan 40 mg p.o. twice daily. 17. Warfarin is about 2.5 mg p.o. daily. PHYSICAL EXAMINATION: VITAL SIGNS: Blood pressure 142/92, respirations of 16, pulse of 91, and temperature 98.4 degrees Fahrenheit. GENERAL: The patient is a very unfortunate lady, in no apparent respiratory distress. HEENT: Atraumatic and normocephalic. Anicteric. Pupils are equal, round, and reactive to light and accommodation. Extraocular muscles are intact. NECK: JVP cannot be visualized due to obesity. No murmurs. CARDIOVASCULAR: There is a 2/6 mid systolic murmur at left sternal border. PMI is at fourth intercostal space in midclavicular line. No gallops or rubs. LUNGS: Clear to auscultation bilaterally. ABDOMEN: Soft, nontender, and nondistended. No hepatosplenomegaly. Positive bowel sounds. EXTREMITIES: Lower extremities, there is no evidence of peripheral edema, clubbing, or cyanosis. Left upper extremity is edematous. LABORATORY AND IMAGING DATA: Chest x-ray shows cardiomegaly, in particular right atrial and ventricular enlargement. There is no evidence of pulmonary edema. WBC was 7.3, hemoglobin of 12.6, hematocrit of 39.8, and platelet count is 212,000. Sodium is 141, potassium is 4.3, chloride is 98, bicarbonate 30, BUN of 16, creatinine 1.1, glucose is 141, and calcium is 9.2. Troponin-I less than 0.3 and proBNP was 5525. A 12-lead electrocardiogram - multifocal atrial rhythm at a rate of 81 with septal infarct, age indeterminate. Prolonged QT interval. There is also nonspecific ST and T-wave abnormalities. ASSESSMENT AND PLAN: The patient is a very unfortunate, 66-year-old female, seen in Cardiology consultation at the request of Dr. Styles. 1. Multifocal atrial rhythm. It is certainly due to severely enlarged right atrial cavity, which was evident on the chest x-ray as well as 2D echocardiography. 2. Acute systolic and diastolic heart failure with restrictive LV physiology. The patient's diuretic needs to be increased to 40 mg daily as an outpatient. Currently, the patient is receiving spironolactone, the only diuretic. We will add Lasix to this regimen. 3. Nonischemic cardiomyopathy with left ventricular ejection fraction estimated to be around 15% to 20%. 4. History of hypertension. 5. History of hypercholesterolemia. 6. History of left breast cancer, status post lumpectomy and chemoradiation therapy. I would like to thank, Dr. Styles, for allowing me to involve in care of this most pleasant patient. Marin Escalera M.D. DR: SANDRA JOB#: [id number] CC:
[2016-06-17 00:41] VITALS: BP 128/82
[2016-06-17 04:22] VITALS: BP 127/68
[2016-06-17] MEDS: NovoLOG Insulin Flexpen SUBQ SCH ×4 (06:11→21:00)
[2016-06-17 08:00] VITALS: BP 105/72
[2016-06-17] MEDS: Solu-MEDROL 125mg Inj IVP SCH ×2 (08:41→20:54)
[2016-06-17] MEDS: Sertraline 50mg tab ORAL SCH (08:42)
[2016-06-17] MEDS: Magnesium Oxide 400mg tab ORAL SCH ×2 (08:42→17:25)
[2016-06-17] MEDS: BuPROPion XL 150mg tab ORAL SCH (08:42)
[2016-06-17] MEDS: Spironolactone 25mg tab ORAL SCH (08:42)
[2016-06-17 09:12] LABS: INR 1.7 (0.9-1.1)
--- NOTE | 2016-06-17 10:09 | General Progress Note ---
Assessment/Plan Assessment/Plan Assessment/Plan 1. 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 Has been on Chemotherapy 3. Anemia to du chronic disease 4. Thrombus in the left Ventricle -- on Coumadin 5. Shortness of Breath likely due to pleural effusion and metastasis- improving 6. Shortness of breath due to asthma exacerbation 7. Diabetes 8. Cardiomegaly 9. Hypertension 10. Dyslipidemia Recommendation - Continue on Coumadin - Maintain INR 2-3 - Transfusion to hgb> 7.5 - GI ppx zantac - DVT ppx with coumadin - DW Staff Sincerely, Oliver Gan MD Subjective Constitutional: Reports: no symptoms HEENT: Reports: no symptoms Cardiovascular: Reports: no symptoms Respiratory: Reports: no symptoms Gastrointestinal/Abdominal: Reports: poor appetite Genitourinary: Reports: no symptoms Neurologic/Psychiatric: Reports: no symptoms Endocrine: Reports: no symptoms Hematologic/Lymphatic: Reports: anemia Allergies: Coded Allergies: BENAZEPRIL (Unverified Allergy, Unknown, 04/19/16) CODEINE (Unverified Allergy, Unknown, 04/19/16) HYDROCHLOROTHIAZIDE (Unverified Allergy, Unknown, 06/14/16) PENICILLINS (Unverified Allergy, Unknown, 04/19/16) PROPOXYPHENE (Unverified Allergy, Unknown, 04/19/16) Subjective stable, no coumadin, not bleeding Objective Last 24 Hour Vital Signs Date Time Temp Pulse Resp B/P Pulse Ox O2 Delivery O2 Flow Rate FiO2 06/17/16 08:00 97.2 73 17 105/72 99 Room Air 06/17/16 04:22 98.5 85 19 127/68 97 Nasal Cannula 2.0 06/17/16 04:00 71 06/17/16 00:41 98.7 89 19 128/82 98 Nasal Cannula 2.0 06/17/16 00:00 86 06/16/16 20:00 98.4 86 15 120/73 98 Room Air 06/16/16 20:00 99 06/16/16 16:00 98.1 85 16 113/70 98 Nasal Cannula 2.5 06/16/16 16:00 81 06/16/16 11:56 97.0 90 20 128/76 95 Room Air Intake and Output 06/16/16 06/17/16 19:00 07:00 Intake Total 340 ml Balance 340 ml Intake Oral 240 ml IV Total 100 ml # Voids 3 6 # Bowel Movements 2 Laboratory Tests 06/17/16 07:30: Prothrombin Time 18.0H, Prothromb Time International Ratio 1.7H Height (Feet): 5 Height (Inches): 7.00 Weight (Pounds): 203 General Appearance: no apparent distress EENT: normal ENT inspection Neck: supple Cardiovascular: regular rhythm Respiratory/Chest: lungs clear Abdomen: non tender Extremities: non-tender Edema: 1+ Leg (L), 1+ Leg (R) Edema: mild edema Neurologic: no motor/sensory deficits Skin: warm/dry OLIVER GAN Jun 17, 2016 10:09
[2016-06-17] MEDS: DuoNeb 0.5-3(2.5)mg/3ml neb HHN PRN ×2 (10:10→22:55)
[2016-06-17 12:00] VITALS: BP 132/84
--- NOTE | 2016-06-17 13:19 | Internal Med Progress Note ---
Subjective Date of Service: Jun 17, 2016 Physician Name Sandra Castillo Attending Physician Gen Pena MD Current Medications Medications (Trade) Dose Ordered Sig/Adolfo Route PRN Reason Start Time Stop Time Status Last Admin Dose Admin Acetaminophen (Tylenol) 1,000 mg Q6H PRN ORAL Mild Pain/Temp > 100.5 06/14/16 23:15 07/14/16 23:14 06/15/16 00:59 Albuterol/ Ipratropium 3 ml 3 ml Q4H PRN HHN Shortness of Breath 06/15/16 14:00 06/20/16 13:59 06/17/16 10:10 Bupropion HCl (Wellbutrin XL) 150 mg Q24H ORAL 06/15/16 09:00 07/15/16 08:59 06/17/16 08:42 Dextrose (Dextrose 50%) STAT PRN IV Hypoglycemia 06/14/16 23:15 07/14/16 23:14 Fexofenadine HCl (Joana) 60 mg TWICE A DAY ORAL 06/15/16 09:00 07/15/16 08:59 06/17/16 08:42 Furosemide (Lasix) 20 mg Q12HR@0600,1800 IV 06/16/16 18:00 07/16/16 17:59 06/17/16 06:10 Gabapentin (Neurontin) 300 mg BEDTIME ORAL 06/15/16 21:00 07/15/16 20:59 06/16/16 22:35 Hydroxychloroquine Sulfate (Plaquenil) 400 mg DAILY ORAL 06/15/16 09:00 07/15/16 08:59 06/17/16 08:42 Insulin Aspart (NovoLOG) BEFORE MEALS AND HS SUBQ 06/15/16 06:30 07/15/16 06:29 06/17/16 11:55 Levofloxacin (Levaquin) 100 ml @ 100 mls/hr Q24H IVPB 06/15/16 16:00 06/22/16 15:59 06/16/16 17:06 Magnesium Oxide (Mag-Ox 400mg) 400 mg BID ORAL 06/15/16 09:00 07/15/16 08:59 06/17/16 08:42 Methylprednisolone Sodium Succinate (Solu-MEDROL) 60 mg EVERY 12 HOURS IVP 06/16/16 21:00 07/16/16 20:59 06/17/16 08:41 Non-Formulary Medication (Non-Formulary Med) 1 ea DAILY ORAL 06/15/16 09:00 07/15/16 08:59 UNV Olanzapine (ZyPREXA) 10 mg QHS ORAL 06/15/16 01:00 07/15/16 00:59 06/16/16 22:35 Pravastatin Sodium (Pravachol) 20 mg BEDTIME ORAL 06/15/16 21:00 07/15/16 20:59 06/16/16 22:35 Sertraline HCl (Zoloft) 200 mg DAILY ORAL 06/15/16 09:00 07/15/16 08:59 06/17/16 08:42 Spironolactone (Aldactone) 25 mg DAILY ORAL 06/15/16 09:00 07/15/16 08:59 06/17/16 08:42 Warfarin Sodium (Coumadin per pharmacy) 1 ea DAILY PRN MISC Per rx protocol 06/14/16 23:15 07/14/16 23:14 Warfarin Sodium/ Warfarin Sodium (Coumadin/ Coumadin) 3.5 mg COUMADIN ORAL 06/17/16 17:00 06/22/16 16:59 Allergies: Coded Allergies: BENAZEPRIL (Unverified Allergy, Unknown, 04/19/16) CODEINE (Unverified Allergy, Unknown, 04/19/16) HYDROCHLOROTHIAZIDE (Unverified Allergy, Unknown, 06/14/16) PENICILLINS (Unverified Allergy, Unknown, 04/19/16) PROPOXYPHENE (Unverified Allergy, Unknown, 04/19/16) ROS Limited/Unobtainable: No Constitutional: Reports: no symptoms HEENT: Reports: no symptoms Cardiovascular: Reports: no symptoms Respiratory: Reports: shortness of breath Gastrointestinal/Abdominal: Reports: no symptoms Genitourinary: Reports: no symptoms Neurologic/Psychiatric: Reports: no symptoms Subjective 66 YO F with metastatic brease cancer admitted with shortness of breath. Cover for Int Med-Dr Pena. C/O shortness of breath. Objective Last Vital Signs Date Time Temp Pulse Resp B/P Pulse Ox O2 Delivery O2 Flow Rate FiO2 06/17/16 12:00 96.4 81 18 132/84 98 Room Air 06/17/16 04:22 2.0 06/15/16 16:00 99 General Appearance: WD/WN, no apparent distress, alert EENT: PERRL/EOMI, normal ENT inspection Neck: non-tender, normal alignment, supple, normal inspection Cardiovascular: normal peripheral pulses, normal rate, regular rhythm, no gallop/murmur, no JVD Respiratory/Chest: chest wall non-tender, crackles/rales, rhonchi - bilaterally , expiratory wheezing Abdomen: normal bowel sounds, non tender, soft, no organomegaly, no mass Extremities: normal range of motion 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 Resulted Intake and Output 06/16/16 06/17/16 19:00 07:00 Intake Total 340 ml Balance 340 ml Intake Oral 240 ml IV Total 100 ml # Voids 3 6 # Bowel Movements 2 Assessment/Plan Problem List: (1) Acute bilateral low back pain (2) SOB (shortness of breath) Assessment & Plan: CHF exacerbation vs asthma. See pulm and cardiology note (3) HTN (hypertension) (4) Diabetes mellitus Assessment & Plan: Cont novolog sliding scale. (5) CHF (congestive heart failure) (6) Breast cancer Assessment & Plan: See onc note. (7) Lung metastases (8) Chest pain Assessment & Plan: See cardiology note. (9) Hypercholesteremia (10) Lymphedema of left arm Assessment & Plan: Chronic secondary to breast cancer. (11) Acute asthma exacerbation Assessment & Plan: Continue duoneb, IV levaquin and IV solumedrol per pulmonary Status: not improved SANDRA CASTILLO Jun 17, 2016 13:19
[2016-06-17 15:20] LABS: ABG ALLEN TEST POSITIVE; ABG BASE EXCESS 3.4
[2016-06-17 16:00] VITALS: BP 125/84
[2016-06-17] MEDS ORDERED: NS 275ml ONE (16:05)
[2016-06-17] MEDS ORDERED: Tubing IV Secondary IV ONE (16:05)
[2016-06-17] MEDS: WARFARIN SOD ORAL SCH ×2 (17:27)
[2016-06-17 20:00] VITALS: BP 140/84
--- NOTE | 2016-06-17 21:35 | Cardiology Progress Note ---
Assessment/Plan Assessment/Plan 1. Multifocal atrial rhythm 2. Acute systolic and diastolic heart failure with restrictive LV physiology, continue lasix and aldactone, will consider Entresto as an outpatient. 3. Nonischemic cardiomyopathy with left ventricular ejection fraction estimated to be around 15-20%. 4. History of hypertension. 5. History of hypercholesterolemia. Subjective Subjective Multifocal atrial rhythm at 85. Objective Last 24 Hour Vital Signs Date Time Temp Pulse Resp B/P Pulse Ox O2 Delivery O2 Flow Rate FiO2 06/17/16 20:00 97.8 83 22 140/84 98 Room Air 06/17/16 16:00 80 06/17/16 16:00 97.7 81 20 125/84 96 Room Air 06/17/16 12:00 81 06/17/16 12:00 96.4 81 18 132/84 98 Room Air 06/17/16 08:00 76 06/17/16 08:00 97.2 73 17 105/72 99 Room Air 06/17/16 04:22 98.5 85 19 127/68 97 Nasal Cannula 2.0 06/17/16 04:00 71 06/17/16 00:41 98.7 89 19 128/82 98 Nasal Cannula 2.0 06/17/16 00:00 86 Intake and Output 06/16/16 06/17/16 19:00 07:00 Intake Total 340 ml Balance 340 ml Intake Oral 240 ml IV Total 100 ml # Voids 3 6 # Bowel Movements 2 2D Echo: Global LV HK worse at anteroseptal wall, EF 25%, RAP 20, PAP 72, Mod MR Laboratory Tests Test 06/17/16 07:30 06/17/16 15:16 Prothrombin Time 18.0 SEC (9.30-11.50) H Prothromb Time International Ratio 1.7 (0.9-1.1) H Arterial Blood pH 7.399 (7.350-7.450) Arterial Blood Partial Pressure CO2 48.0 mmHg (35.0-45.0) H Arterial Blood Partial Pressure O2 68.3 mmHg (75.0-100.0) L Arterial Blood HCO3 29.0 mmol/L (22.0-26.0) H Arterial Blood Oxygen Saturation 92.2 % (92.0-98.0) Arterial Blood Base Excess 3.4 Silvino Test Positive Microbiology Date/Time Source Procedure Growth Status 06/16/16 17:39 Sputum Gram Stain - Final Resulted 06/16/16 17:39 Sputum Sputum Culture - Preliminary NORMAL UPPER RESPIRATORY GLORIA AT 24 ... Resulted Objective GENERAL: The patient is a very unfortunate lady, in no apparent respiratory distress. HEENT: Atraumatic and normocephalic. Anicteric. Pupils are equal, round, and reactive to light and accommodation. Extraocular muscles are intact. NECK: JVP cannot be visualized due to obesity. No murmurs. CARDIOVASCULAR: There is a 2/6 mid systolic murmur at left sternal border. PMI is at fourth intercostal space in midclavicular line. No gallops or rubs. LUNGS: Clear to auscultation bilaterally. ABDOMEN: Soft, nontender, and nondistended. No hepatosplenomegaly. Positive bowel sounds. EXTREMITIES: Lower extremities, there is no evidence of peripheral edema, clubbing, or cyanosis. Left upper extremity is edematous. MISSY JOHNSON Jun 17, 2016 21:35
[2016-06-18] VITALS: BP 140/90
[2016-06-18 04:00] VITALS: BP 137/92
[2016-06-18] MEDS: NovoLOG Insulin Flexpen SUBQ SCH ×4 (06:27→20:51)
[2016-06-18 08:00] VITALS: BP 130/81
--- NOTE | 2016-06-18 08:50 | General Progress Note ---
Assessment/Plan Assessment/Plan Assessment/Plan 1. 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 Has been on Chemotherapy 3. Anemia to du chronic disease 4. Thrombus in the left Ventricle -- on Coumadin 5. Shortness of Breath likely due to pleural effusion and metastasis- improved 6. Shortness of breath due to asthma exacerbation 7. Diabetes 8. Cardiomegaly 9. Hypertension 10. Dyslipidemia Recommendation - Continue on Coumadin - Maintain INR 2-3 - Transfusion to hgb> 7.5 - GI ppx zantac - DVT ppx with coumadin - Staff Sincerely, Oliver Gan MD Subjective Constitutional: Reports: no symptoms HEENT: Reports: no symptoms Cardiovascular: Reports: no symptoms Respiratory: Reports: no symptoms Gastrointestinal/Abdominal: Reports: poor appetite Genitourinary: Reports: no symptoms Neurologic/Psychiatric: Reports: no symptoms Endocrine: Reports: no symptoms Hematologic/Lymphatic: Reports: anemia Allergies: Coded Allergies: BENAZEPRIL (Unverified Allergy, Unknown, 04/19/16) CODEINE (Unverified Allergy, Unknown, 04/19/16) HYDROCHLOROTHIAZIDE (Unverified Allergy, Unknown, 06/14/16) PENICILLINS (Unverified Allergy, Unknown, 04/19/16) PROPOXYPHENE (Unverified Allergy, Unknown, 04/19/16) Subjective stable, no coumadin, not bleeding, no bleeding Objective Last 24 Hour Vital Signs Date Time Temp Pulse Resp B/P Pulse Ox O2 Delivery O2 Flow Rate FiO2 06/18/16 04:00 97.8 83 20 137/92 98 Room Air 06/18/16 03:46 86 06/18/16 00:00 97.5 67 20 140/90 98 Room Air 06/17/16 23:52 77 06/17/16 23:07 90 18 97 Room Air 21 06/17/16 22:54 99 20 95 Room Air 21 06/17/16 20:00 97.8 83 22 140/84 98 Room Air 06/17/16 19:57 79 06/17/16 16:00 80 06/17/16 16:00 97.7 81 20 125/84 96 Room Air 06/17/16 12:00 81 06/17/16 12:00 96.4 81 18 132/84 98 Room Air Intake and Output 06/17/16 06/18/16 19:00 07:00 Intake Total 740 ml 500 ml Balance 740 ml 500 ml Intake Oral 640 ml 500 ml IV Total 100 ml # Voids 3 Laboratory Tests 06/17/16 15:16: Arterial Blood pH 7.399, Arterial Blood Partial Pressure CO2 48.0H, Arterial Blood Partial Pressure O2 68.3L, Arterial Blood HCO3 29.0H, Arterial Blood Oxygen Saturation 92.2, Arterial Blood Base Excess 3.4, Silvino Test Positive Height (Feet): 5 Height (Inches): 7.00 Weight (Pounds): 203 General Appearance: no apparent distress EENT: TMs normal Neck: supple Cardiovascular: regular rhythm Respiratory/Chest: lungs clear Abdomen: non tender Extremities: non-tender Edema: 1+ Leg (L), 1+ Leg (R) Edema: mild edema Neurologic: no motor/sensory deficits Skin: warm/dry OLIVER GAN Jun 18, 2016 08:50
[2016-06-18 09:10] LABS: BASOPHILS % (AUTO) 0.5 % (0.0-2.0); LYMPHOCYTES % (AUTO) 12.5 % (20.0-45.0); MEAN CORPUSCULAR HEMOGLOBIN 28.6 PG (27.0-31.0); MEAN CORPUSCULAR HGB CONC 30.3 G/DL (32.0-36.0); MEAN CORPUSCULAR VOLUME 94 FL (80-99); MONOCYTES % (AUTO) 4.1 % (1.0-10.0); NEUTROPHILS % (AUTO) 82.9 % (45.0-75.0); PLATELET COUNT 242 K/UL (150-450); RED BLOOD COUNT 4.68 M/UL (4.20-5.40); RED CELL DISTRIBUTION WIDTH 15.2 % (11.6-14.8); WHITE BLOOD COUNT 10.7 K/UL (4.8-10.8)
[2016-06-18 09:23] LABS: PROTHROMBIN TIME 20.4 SEC (9.30-11.50)
[2016-06-18] MEDS: Spironolactone 25mg tab ORAL SCH (09:27)
[2016-06-18] MEDS: Magnesium Oxide 400mg tab ORAL SCH ×2 (09:27→18:22)
[2016-06-18] MEDS: Sertraline 50mg tab ORAL SCH (09:27)
[2016-06-18] MEDS: Solu-MEDROL 125mg Inj IVP SCH ×2 (09:28→20:46)
[2016-06-18] MEDS: Acetaminophen 500mg (ES) tab ORAL PRN (09:28)
[2016-06-18] MEDS: BuPROPion XL 150mg tab ORAL SCH (09:28)
[2016-06-18 09:36] LABS: CALCIUM 9.5 mg/dL (8.6-10.2); CREATININE 1.2 mg/dL (0.5-0.9); GLOMERULAR FILTRATION RATE 54.2 mL/min (>60); POTASSIUM 4.3 mEQ/L (3.4-4.9)
[2016-06-18 12:00] VITALS: BP 128/81
[2016-06-18 16:00] VITALS: BP 137/77
--- NOTE | 2016-06-18 16:35 | Internal Med Progress Note ---
Subjective Date of Service: Jun 18, 2016 Physician Name Sandra Castillo Attending Physician Gen Pena MD Current Medications Medications (Trade) Dose Ordered Sig/Adolfo Route PRN Reason Start Time Stop Time Status Last Admin Dose Admin Acetaminophen (Tylenol) 1,000 mg Q6H PRN ORAL Mild Pain/Temp > 100.5 06/14/16 23:15 07/14/16 23:14 06/18/16 09:28 Albuterol/ Ipratropium 3 ml 3 ml Q4H PRN HHN Shortness of Breath 06/15/16 14:00 06/20/16 13:59 06/17/16 22:55 Bupropion HCl (Wellbutrin XL) 150 mg Q24H ORAL 06/15/16 09:00 07/15/16 08:59 06/18/16 09:28 Dextrose (Dextrose 50%) STAT PRN IV Hypoglycemia 06/14/16 23:15 07/14/16 23:14 Fexofenadine HCl (Joana) 60 mg TWICE A DAY ORAL 06/15/16 09:00 07/15/16 08:59 06/18/16 09:26 Furosemide (Lasix) 20 mg Q12HR@0600,1800 IV 06/16/16 18:00 07/16/16 17:59 06/18/16 06:25 Gabapentin (Neurontin) 300 mg BEDTIME ORAL 06/15/16 21:00 07/15/16 20:59 06/17/16 20:53 Hydroxychloroquine Sulfate (Plaquenil) 400 mg DAILY ORAL 06/15/16 09:00 07/15/16 08:59 06/18/16 09:28 Insulin Aspart (NovoLOG) BEFORE MEALS AND HS SUBQ 06/15/16 06:30 07/15/16 06:29 06/18/16 11:57 Levofloxacin (Levaquin) 100 ml @ 100 mls/hr Q24H IVPB 06/15/16 16:00 06/22/16 15:59 06/17/16 17:27 Magnesium Oxide (Mag-Ox 400mg) 400 mg BID ORAL 06/15/16 09:00 07/15/16 08:59 06/18/16 09:27 Methylprednisolone Sodium Succinate (Solu-MEDROL) 60 mg EVERY 12 HOURS IVP 06/16/16 21:00 07/16/16 20:59 06/18/16 09:28 Non-Formulary Medication (Non-Formulary Med) 1 ea DAILY ORAL 06/15/16 09:00 07/15/16 08:59 UNV Olanzapine (ZyPREXA) 10 mg QHS ORAL 06/15/16 01:00 07/15/16 00:59 06/17/16 20:53 Pravastatin Sodium (Pravachol) 20 mg BEDTIME ORAL 06/15/16 21:00 07/15/16 20:59 06/17/16 20:53 Sertraline HCl (Zoloft) 200 mg DAILY ORAL 06/15/16 09:00 07/15/16 08:59 06/18/16 09:27 Spironolactone (Aldactone) 25 mg DAILY ORAL 06/15/16 09:00 07/15/16 08:59 06/18/16 09:27 Warfarin Sodium (Coumadin per pharmacy) 1 ea DAILY PRN MISC Per rx protocol 06/14/16 23:15 07/14/16 23:14 Warfarin Sodium/ Warfarin Sodium (Coumadin/ Coumadin) 3.5 mg COUMADIN ORAL 06/17/16 17:00 06/22/16 16:59 06/17/16 17:27 Allergies: Coded Allergies: BENAZEPRIL (Unverified Allergy, Unknown, 04/19/16) CODEINE (Unverified Allergy, Unknown, 04/19/16) HYDROCHLOROTHIAZIDE (Unverified Allergy, Unknown, 06/14/16) PENICILLINS (Unverified Allergy, Unknown, 04/19/16) PROPOXYPHENE (Unverified Allergy, Unknown, 04/19/16) ROS Limited/Unobtainable: No Constitutional: Reports: no symptoms HEENT: Reports: no symptoms Cardiovascular: Reports: no symptoms Respiratory: Reports: shortness of breath Gastrointestinal/Abdominal: Reports: no symptoms Genitourinary: Reports: no symptoms Subjective 66 YO F with metastatic brease cancer admitted with shortness of breath. Cover for Int Med-Dr Pena. C/O shortness of breath. Objective Last Vital Signs Date Time Temp Pulse Resp B/P Pulse Ox O2 Delivery O2 Flow Rate FiO2 06/18/16 16:00 97.4 81 20 137/77 97 Room Air 06/17/16 23:07 21 06/17/16 04:22 2.0 Laboratory Tests Test 06/18/16 08:25 White Blood Count 10.7 K/UL (4.8-10.8) Red Blood Count 4.68 M/UL (4.20-5.40) Hemoglobin 13.4 G/DL (12.0-16.0) Hematocrit 44.1 % (37.0-47.0) Mean Corpuscular Volume 94 FL (80-99) Mean Corpuscular Hemoglobin 28.6 PG (27.0-31.0) Mean Corpuscular Hemoglobin Concent 30.3 G/DL (32.0-36.0) L Red Cell Distribution Width 15.2 % (11.6-14.8) H Platelet Count 242 K/UL (150-450) Mean Platelet Volume 6.0 FL (6.5-10.1) L Neutrophils (%) (Auto) 82.9 % (45.0-75.0) H Lymphocytes (%) (Auto) 12.5 % (20.0-45.0) L Monocytes (%) (Auto) 4.1 % (1.0-10.0) Eosinophils (%) (Auto) 0.0 % (0.0-3.0) Basophils (%) (Auto) 0.5 % (0.0-2.0) Prothrombin Time 20.4 SEC (9.30-11.50) H Prothromb Time International Ratio 2.0 (0.9-1.1) H Sodium Level 140 mEQ/L (135-145) Potassium Level 4.3 mEQ/L (3.4-4.9) Chloride Level 96 mEQ/L (98-107) L Carbon Dioxide Level 27 mEQ/L (20-30) Anion Gap 17 (5-15) H Blood Urea Nitrogen 35 mg/dL (7-23) H Creatinine 1.2 mg/dL (0.5-0.9) H Estimat Glomerular Filtration Rate 54.2 mL/min (>60) Glucose Level 241 mg/dL (74-106) H Calcium Level 9.5 mg/dL (8.6-10.2) Microbiology Date/Time Source Procedure Growth Status 06/16/16 17:39 Sputum Gram Stain - Final Complete 06/16/16 17:39 Sputum Sputum Culture - Final NORMAL UPPER RESPIRATORY GLORIA PRESENT Complete Intake and Output 1/21/17 1/22/17 19:00 07:00 Intake Total 740 ml 500 ml Balance 740 ml 500 ml Intake Oral 640 ml 500 ml IV Total 100 ml # Voids 3 Objective General Appearance: WD/WN, no apparent distress, alert EENT: PERRL/EOMI, normal ENT inspection Neck: non-tender, normal alignment, supple, normal inspection Cardiovascular: normal peripheral pulses, normal rate, regular rhythm, no gallop/murmur, no JVD Respiratory/Chest: chest wall non-tender, crackles/rales, rhonchi - bilaterally , expiratory wheezing Abdomen: normal bowel sounds, non tender, soft, no organomegaly, no mass Extremities: normal range of motion 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 See pulm and cardiology note (3) HTN (hypertension) (4) Diabetes mellitus Assessment & Plan: Cont novolog sliding scale. (5) CHF (congestive heart failure) (6) Breast cancer Assessment & Plan: See onc note. (7) Lung metastases (8) Chest pain Assessment & Plan: See cardiology note. (9) Hypercholesteremia (10) Lymphedema of left arm Assessment & Plan: Chronic secondary to breast cancer. (11) Acute asthma exacerbation Assessment & Plan: Continue duoneb, IV levaquin and IV solumedrol per pulmonary Status: progressing SANDRA CASTILLO Jun 18, 2016 16:35
[2016-06-18] MEDS: WARFARIN SOD ORAL SCH ×2 (18:00)
[2016-06-18 20:00] VITALS: BP 126/69
[2016-06-19 00:24] VITALS: BP 115/79
[2016-06-19 04:00] VITALS: BP 132/93
[2016-06-19] MEDS: NovoLOG Insulin Flexpen SUBQ SCH ×4 (06:17→20:36)
[2016-06-19 07:50] LABS: BASOPHILS % (AUTO) 0.7 % (0.0-2.0); EOSINOPHILS % (AUTO) 0.1 % (0.0-3.0); LYMPHOCYTES % (AUTO) 21.4 % (20.0-45.0); MEAN CORPUSCULAR HEMOGLOBIN 29.2 PG (27.0-31.0); MEAN CORPUSCULAR VOLUME 94 FL (80-99); MEAN PLATELET VOLUME 6.8 FL (6.5-10.1); MONOCYTES % (AUTO) 7.3 % (1.0-10.0); NEUTROPHILS % (AUTO) 70.5 % (45.0-75.0); PLATELET COUNT 224 K/UL (150-450); RED BLOOD COUNT 4.35 M/UL (4.20-5.40); RED CELL DISTRIBUTION WIDTH 14.8 % (11.6-14.8); WHITE BLOOD COUNT 9.4 K/UL (4.8-10.8)
[2016-06-19 08:00] VITALS: BP 135/87
[2016-06-19 08:00] LABS: INR 2.4 (0.9-1.1); PROTHROMBIN TIME 24.7 SEC (9.30-11.50)
[2016-06-19 08:24] LABS: CALCIUM 9.2 mg/dL (8.6-10.2); CREATININE 1.3 mg/dL (0.5-0.9); GLOMERULAR FILTRATION RATE 49.3 mL/min (>60); POTASSIUM 4.1 mEQ/L (3.4-4.9)
[2016-06-19] MEDS: Sertraline 50mg tab ORAL SCH (08:37)
[2016-06-19] MEDS: Magnesium Oxide 400mg tab ORAL SCH ×2 (08:38→18:01)
[2016-06-19] MEDS: Solu-MEDROL 125mg Inj IVP SCH ×2 (08:38→20:36)
[2016-06-19] MEDS: Spironolactone 25mg tab ORAL SCH (08:38)
[2016-06-19] MEDS: BuPROPion XL 150mg tab ORAL SCH (08:38)
[2016-06-19 12:00] VITALS: BP 132/93
[2016-06-19] MEDS: DuoNeb 0.5-3(2.5)mg/3ml neb HHN PRN (12:02)
--- NOTE | 2016-06-19 13:09 | Internal Med Progress Note ---
Subjective Date of Service: Jun 19, 2016 Physician Name Sandra Castillo Attending Physician Gen Pena MD Current Medications Medications (Trade) Dose Ordered Sig/Adolfo Route PRN Reason Start Time Stop Time Status Last Admin Dose Admin Acetaminophen (Tylenol) 1,000 mg Q6H PRN ORAL Mild Pain/Temp > 100.5 06/14/16 23:15 07/14/16 23:14 06/18/16 09:28 Albuterol/ Ipratropium 3 ml 3 ml Q4H PRN HHN Shortness of Breath 06/15/16 14:00 06/20/16 13:59 06/19/16 12:02 Bupropion HCl (Wellbutrin XL) 150 mg Q24H ORAL 06/15/16 09:00 07/15/16 08:59 06/19/16 08:38 Dextrose (Dextrose 50%) STAT PRN IV Hypoglycemia 06/14/16 23:15 07/14/16 23:14 Fexofenadine HCl (Joana) 60 mg TWICE A DAY ORAL 06/15/16 09:00 07/15/16 08:59 06/19/16 08:37 Furosemide (Lasix) 20 mg Q12HR@0600,1800 IV 06/16/16 18:00 07/16/16 17:59 06/19/16 06:12 Gabapentin (Neurontin) 300 mg BEDTIME ORAL 06/15/16 21:00 07/15/16 20:59 06/18/16 20:47 Hydroxychloroquine Sulfate (Plaquenil) 400 mg DAILY ORAL 06/15/16 09:00 07/15/16 08:59 06/19/16 08:37 Insulin Aspart (NovoLOG) BEFORE MEALS AND HS SUBQ 06/15/16 06:30 07/15/16 06:29 06/19/16 12:21 Levofloxacin (Levaquin) 100 ml @ 100 mls/hr Q24H IVPB 06/15/16 16:00 06/22/16 15:59 06/18/16 16:00 Magnesium Oxide (Mag-Ox 400mg) 400 mg BID ORAL 06/15/16 09:00 07/15/16 08:59 06/19/16 08:38 Methylprednisolone Sodium Succinate (Solu-MEDROL) 60 mg EVERY 12 HOURS IVP 06/16/16 21:00 07/16/16 20:59 06/19/16 08:38 Non-Formulary Medication (Non-Formulary Med) 1 ea DAILY ORAL 06/15/16 09:00 07/15/16 08:59 UNV Olanzapine (ZyPREXA) 10 mg QHS ORAL 06/15/16 01:00 07/15/16 00:59 06/18/16 18:32 Pravastatin Sodium (Pravachol) 20 mg BEDTIME ORAL 06/15/16 21:00 07/15/16 20:59 06/18/16 20:47 Sertraline HCl (Zoloft) 200 mg DAILY ORAL 06/15/16 09:00 07/15/16 08:59 06/19/16 08:37 Spironolactone (Aldactone) 25 mg DAILY ORAL 06/15/16 09:00 07/15/16 08:59 06/19/16 08:38 Warfarin Sodium (Coumadin per pharmacy) 1 ea DAILY PRN MISC Per rx protocol 06/14/16 23:15 07/14/16 23:14 Warfarin Sodium/ Warfarin Sodium (Coumadin/ Coumadin) 3.5 mg COUMADIN ORAL 06/17/16 17:00 06/22/16 16:59 06/18/16 18:00 Allergies: Coded Allergies: BENAZEPRIL (Unverified Allergy, Unknown, 04/19/16) CODEINE (Unverified Allergy, Unknown, 04/19/16) HYDROCHLOROTHIAZIDE (Unverified Allergy, Unknown, 06/14/16) PENICILLINS (Unverified Allergy, Unknown, 04/19/16) PROPOXYPHENE (Unverified Allergy, Unknown, 04/19/16) ROS Limited/Unobtainable: No Constitutional: Reports: no symptoms HEENT: Reports: no symptoms Cardiovascular: Reports: no symptoms Respiratory: Reports: shortness of breath Gastrointestinal/Abdominal: Reports: no symptoms Genitourinary: Reports: no symptoms Neurologic/Psychiatric: Reports: no symptoms Subjective 66 YO F with metastatic brease cancer admitted with shortness of breath. Cover for Int Med-Dr Pena. C/O shortness of breath. Objective Last Vital Signs Date Time Temp Pulse Resp B/P Pulse Ox O2 Delivery O2 Flow Rate FiO2 06/19/16 12:02 82 20 98 Room Air 21 06/19/16 08:00 96.8 135/87 06/17/16 04:22 2.0 Laboratory Tests Test 06/19/16 06:30 White Blood Count 9.4 K/UL (4.8-10.8) Red Blood Count 4.35 M/UL (4.20-5.40) Hemoglobin 12.7 G/DL (12.0-16.0) Hematocrit 41.0 % (37.0-47.0) Mean Corpuscular Volume 94 FL (80-99) Mean Corpuscular Hemoglobin 29.2 PG (27.0-31.0) Mean Corpuscular Hemoglobin Concent 31.0 G/DL (32.0-36.0) L Red Cell Distribution Width 14.8 % (11.6-14.8) Platelet Count 224 K/UL (150-450) Mean Platelet Volume 6.8 FL (6.5-10.1) Neutrophils (%) (Auto) 70.5 % (45.0-75.0) Lymphocytes (%) (Auto) 21.4 % (20.0-45.0) Monocytes (%) (Auto) 7.3 % (1.0-10.0) Eosinophils (%) (Auto) 0.1 % (0.0-3.0) Basophils (%) (Auto) 0.7 % (0.0-2.0) Prothrombin Time 24.7 SEC (9.30-11.50) H Prothromb Time International Ratio 2.4 (0.9-1.1) H Sodium Level 142 mEQ/L (135-145) Potassium Level 4.1 mEQ/L (3.4-4.9) Chloride Level 98 mEQ/L (98-107) Carbon Dioxide Level 32 mEQ/L (20-30) H Anion Gap 12 (5-15) Blood Urea Nitrogen 33 mg/dL (7-23) H Creatinine 1.3 mg/dL (0.5-0.9) H Estimat Glomerular Filtration Rate 49.3 mL/min (>60) Glucose Level 142 mg/dL (74-106) #H Calcium Level 9.2 mg/dL (8.6-10.2) Microbiology Date/Time Source Procedure Growth Status 06/16/16 17:39 Sputum Gram Stain - Final Complete 06/16/16 17:39 Sputum Sputum Culture - Final NORMAL UPPER RESPIRATORY GLORIA PRESENT Complete Intake and Output 06/18/16 06/19/16 19:00 07:00 Intake Total 640 ml 300 ml Balance 640 ml 300 ml Intake Oral 640 ml 300 ml # Voids 3 5 Objective General Appearance: WD/WN, no apparent distress, alert EENT: PERRL/EOMI, normal ENT inspection Neck: non-tender, normal alignment, supple, normal inspection Cardiovascular: normal peripheral pulses, normal rate, regular rhythm, no gallop/murmur, no JVD Respiratory/Chest: chest wall non-tender, crackles/rales, rhonchi - bilaterally , expiratory wheezing Abdomen: normal bowel sounds, non tender, soft, no organomegaly, no mass Extremities: normal range of motion 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 See pulm and cardiology note (3) HTN (hypertension) (4) Diabetes mellitus Assessment & Plan: Cont novolog sliding scale. (5) CHF (congestive heart failure) (6) Breast cancer Assessment & Plan: See onc note. (7) Lung metastases (8) Chest pain Assessment & Plan: See cardiology note. (9) Hypercholesteremia (10) Lymphedema of left arm Assessment & Plan: Chronic secondary to breast cancer. (11) Acute asthma exacerbation Assessment & Plan: Continue duoneb, IV levaquin and IV solumedrol per pulmonary Status: progressing SANDRA CASTILLO Jun 19, 2016 13:09
--- NOTE | 2016-06-19 13:55 | Cardiology Progress Note ---
Assessment/Plan Assessment/Plan 1. Multifocal atrial rhythm with controlled ventricular response. 2. Acute systolic and diastolic heart failure with restrictive LV physiology, continue lasix and aldactone, will consider Entresto as an outpatient. 3. Nonischemic cardiomyopathy with left ventricular ejection fraction estimated to be around 15-20%. 4. History of hypertension. 5. History of hypercholesterolemia. Subjective Subjective Multifocal atrial rhythm at 88. Objective Last 24 Hour Vital Signs Date Time Temp Pulse Resp B/P Pulse Ox O2 Delivery O2 Flow Rate FiO2 06/19/16 12:02 82 20 98 Room Air 21 06/19/16 12:02 82 18 98 Room Air 21 06/19/16 12:00 96.9 96 18 132/93 97 Room Air 06/19/16 10:05 86 16 Room Air 06/19/16 08:00 96.8 92 17 135/87 98 Room Air 06/19/16 07:45 89 06/19/16 04:00 96.8 80 18 132/93 94 Room Air 06/19/16 04:00 83 06/19/16 00:24 98.1 76 18 115/79 98 Room Air 06/19/16 00:00 78 06/18/16 23:58 78 06/18/16 20:15 84 16 Room Air 06/18/16 20:00 98.0 82 21 126/69 97 Room Air 06/18/16 16:00 97.4 81 20 137/77 97 Room Air Intake and Output 06/18/16 06/19/16 19:00 07:00 Intake Total 640 ml 300 ml Balance 640 ml 300 ml Intake Oral 640 ml 300 ml # Voids 3 5 2D Echo: Global LV HK worse at anteroseptal wall, EF 25%, RAP 20, PAP 72, Mod MR Laboratory Tests Test 06/19/16 06:30 White Blood Count 9.4 K/UL (4.8-10.8) Red Blood Count 4.35 M/UL (4.20-5.40) Hemoglobin 12.7 G/DL (12.0-16.0) Hematocrit 41.0 % (37.0-47.0) Mean Corpuscular Volume 94 FL (80-99) Mean Corpuscular Hemoglobin 29.2 PG (27.0-31.0) Mean Corpuscular Hemoglobin Concent 31.0 G/DL (32.0-36.0) L Red Cell Distribution Width 14.8 % (11.6-14.8) Platelet Count 224 K/UL (150-450) Mean Platelet Volume 6.8 FL (6.5-10.1) Neutrophils (%) (Auto) 70.5 % (45.0-75.0) Lymphocytes (%) (Auto) 21.4 % (20.0-45.0) Monocytes (%) (Auto) 7.3 % (1.0-10.0) Eosinophils (%) (Auto) 0.1 % (0.0-3.0) Basophils (%) (Auto) 0.7 % (0.0-2.0) Prothrombin Time 24.7 SEC (9.30-11.50) H Prothromb Time International Ratio 2.4 (0.9-1.1) H Sodium Level 142 mEQ/L (135-145) Potassium Level 4.1 mEQ/L (3.4-4.9) Chloride Level 98 mEQ/L (98-107) Carbon Dioxide Level 32 mEQ/L (20-30) H Anion Gap 12 (5-15) Blood Urea Nitrogen 33 mg/dL (7-23) H Creatinine 1.3 mg/dL (0.5-0.9) H Estimat Glomerular Filtration Rate 49.3 mL/min (>60) Glucose Level 142 mg/dL (74-106) #H Calcium Level 9.2 mg/dL (8.6-10.2) Microbiology Date/Time Source Procedure Growth Status 06/16/16 17:39 Sputum Gram Stain - Final Complete 06/16/16 17:39 Sputum Sputum Culture - Final NORMAL UPPER RESPIRATORY GLORIA PRESENT Complete Objective GENERAL: The patient is a very unfortunate lady, in no apparent respiratory distress. HEENT: Atraumatic and normocephalic. Anicteric. Pupils are equal, round, and reactive to light and accommodation. Extraocular muscles are intact. NECK: JVP cannot be visualized due to obesity. No murmurs. CARDIOVASCULAR: There is a 2/6 mid systolic murmur at left sternal border. PMI is at fourth intercostal space in midclavicular line. No gallops or rubs. LUNGS: Clear to auscultation bilaterally. ABDOMEN: Soft, nontender, and nondistended. No hepatosplenomegaly. Positive bowel sounds. EXTREMITIES: Lower extremities, there is no evidence of peripheral edema, clubbing, or cyanosis. Left upper extremity is edematous. MISSY JOHNSON Jun 19, 2016 13:55
--- NOTE | 2016-06-19 15:05 | General Progress Note ---
Assessment/Plan Assessment/Plan Assessment/Plan 1. Anemia 2/2 Malignancy of breast ca with lung mets, improved 2. 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 Has been on Chemotherapy 3. Anemia to du chronic disease 4. Thrombus in the left Ventricle -- on Coumadin 5. Shortness of Breath likely due to pleural effusion and metastasis- improved 6. Shortness of breath due to asthma exacerbation 7. Diabetes 8. Cardiomegaly 9. Hypertension 10. Dyslipidemia Recommendation - Continue on Coumadin - Maintain INR 2-3 - Transfusion to hgb> 7.5 - GI ppx zantac - DVT ppx with coumadin - Outpatient oncology f/u - DW Staff Sincerely, Brandon Gan MD Subjective Constitutional: Reports: no symptoms HEENT: Reports: no symptoms Cardiovascular: Reports: no symptoms Respiratory: Reports: no symptoms Gastrointestinal/Abdominal: Reports: poor appetite Genitourinary: Reports: no symptoms Neurologic/Psychiatric: Reports: no symptoms Endocrine: Reports: no symptoms Hematologic/Lymphatic: Reports: anemia Allergies: Coded Allergies: BENAZEPRIL (Unverified Allergy, Unknown, 04/19/16) CODEINE (Unverified Allergy, Unknown, 04/19/16) HYDROCHLOROTHIAZIDE (Unverified Allergy, Unknown, 06/14/16) PENICILLINS (Unverified Allergy, Unknown, 04/19/16) PROPOXYPHENE (Unverified Allergy, Unknown, 04/19/16) Subjective patient is stable. No bleeding or overnight events Objective Last 24 Hour Vital Signs Date Time Temp Pulse Resp B/P Pulse Ox O2 Delivery O2 Flow Rate FiO2 06/19/16 12:02 82 20 98 Room Air 21 06/19/16 12:02 82 18 98 Room Air 21 06/19/16 12:00 96.9 96 18 132/93 97 Room Air 06/19/16 11:55 81 06/19/16 10:05 86 16 Room Air 06/19/16 08:00 96.8 92 17 135/87 98 Room Air 06/19/16 07:45 89 06/19/16 04:00 96.8 80 18 132/93 94 Room Air 06/19/16 04:00 83 06/19/16 00:24 98.1 76 18 115/79 98 Room Air 06/19/16 00:00 78 06/18/16 23:58 78 06/18/16 20:15 84 16 Room Air 06/18/16 20:00 98.0 82 21 126/69 97 Room Air 06/18/16 16:00 97.4 81 20 137/77 97 Room Air Intake and Output 06/18/16 06/19/16 19:00 07:00 Intake Total 640 ml 300 ml Balance 640 ml 300 ml Intake Oral 640 ml 300 ml # Voids 3 5 Laboratory Tests 06/19/16 06:30: White Blood Count 9.4, Red Blood Count 4.35, Hemoglobin 12.7, Hematocrit 41.0, Mean Corpuscular Volume 94, Mean Corpuscular Hemoglobin 29.2, Mean Corpuscular Hemoglobin Concent 31.0L, Red Cell Distribution Width 14.8, Platelet Count 224, Mean Platelet Volume 6.8, Neutrophils (%) (Auto) 70.5, Lymphocytes (%) (Auto) 21.4, Monocytes (%) (Auto) 7.3, Eosinophils (%) (Auto) 0.1, Basophils (%) (Auto ) 0.7, Prothrombin Time 24.7H, Prothromb Time International Ratio 2.4H, Sodium Level 142, Potassium Level 4.1, Chloride Level 98, Carbon Dioxide Level 32H, Anion Gap 12, Blood Urea Nitrogen 33H, Creatinine 1.3H, Estimat Glomerular Filtration Rate 49.3, Glucose Level 142#H, Calcium Level 9.2 Height (Feet): 5 Height (Inches): 7.00 Weight (Pounds): 202 EENT: normal ENT inspection Neck: normal alignment Cardiovascular: normal rate Respiratory/Chest: chest wall non-tender Abdomen: non tender Extremities: non-tender Edema: 1+ Leg (L), 1+ Leg (R) Edema: mild edema Neurologic: alert Skin: warm/dry Brandon Gan Jun 19, 2016 15:05
[2016-06-19 16:00] VITALS: BP 123/73
[2016-06-19] MEDS: WARFARIN SOD ORAL SCH ×2 (17:11)
[2016-06-19 20:00] VITALS: BP 123/69
[2016-06-20] VITALS: BP 125/89
[2016-06-20 04:00] VITALS: BP 134/88
[2016-06-20] MEDS: NovoLOG Insulin Flexpen SUBQ SCH ×4 (06:30→21:37)
[2016-06-20 08:16] VITALS: BP 136/94
[2016-06-20 08:27] LABS: BASOPHILS % (AUTO) 0.7 % (0.0-2.0); EOSINOPHILS % (AUTO) 0.1 % (0.0-3.0); LYMPHOCYTES % (AUTO) 12.5 % (20.0-45.0); MEAN CORPUSCULAR HGB CONC 31.1 G/DL (32.0-36.0); MEAN CORPUSCULAR VOLUME 93 FL (80-99); MONOCYTES % (AUTO) 5.2 % (1.0-10.0); NEUTROPHILS % (AUTO) 81.5 % (45.0-75.0); PLATELET COUNT 227 K/UL (150-450); RED BLOOD COUNT 4.36 M/UL (4.20-5.40); RED CELL DISTRIBUTION WIDTH 14.9 % (11.6-14.8); WHITE BLOOD COUNT 10.3 K/UL (4.8-10.8)
[2016-06-20 08:37] LABS: INR 2.3 (0.9-1.1)
[2016-06-20] MEDS: Sertraline 50mg tab ORAL SCH (08:44)
[2016-06-20] MEDS: BuPROPion XL 150mg tab ORAL SCH (08:44)
[2016-06-20] MEDS: Furosemide 40mg tab ORAL SCH (08:45)
[2016-06-20] MEDS: Spironolactone 25mg tab ORAL SCH (08:45)
[2016-06-20] MEDS: Solu-MEDROL 125mg Inj IVP SCH (08:45)
[2016-06-20] MEDS: Magnesium Oxide 400mg tab ORAL SCH ×2 (08:45→17:46)
[2016-06-20 08:48] LABS: ANION GAP 12 (5-15); CALCIUM 9.3 mg/dL (8.6-10.2); CARBON DIOXIDE 32 mEQ/L (20-30); CHLORIDE 98 mEQ/L (98-107); GLOMERULAR FILTRATION RATE > 60 mL/min (>60); HEMOLYSIS 1; POTASSIUM 4.4 mEQ/L (3.4-4.9); SODIUM 142 mEQ/L (135-145)
[2016-06-20 12:49] VITALS: BP 126/82
[2016-06-20 16:00] VITALS: BP 120/70
[2016-06-20] MEDS: Acetaminophen 500mg (ES) tab ORAL PRN (16:25)
--- NOTE | 2016-06-20 16:31 | General Progress Note ---
Assessment/Plan Assessment/Plan Assessment 1. Anemia 2/2 Malignancy of breast ca with lung mets, improved 2. 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 Has been on Chemotherapy 3. Anemia to du chronic disease 4. Thrombus in the left Ventricle - on coumadin 5. Shortness of Breath likely due to pleural effusion and metastasis 6. Shortness of breath due to asthma exacerbation 7. Diabetes 8. Cardiomegaly 9. Hypertension 10. Dyslipidemia Recommendations: - Continue on Coumadin - Maintain INR 2-3 - Transfusion to hgb> 7.5 - GI ppx zantac - DVT ppx with coumadin - Outpatient oncology f/u - DW Staff Sincerely, Brandon Gan MD Subjective Constitutional: Reports: no symptoms HEENT: Reports: no symptoms Cardiovascular: Reports: no symptoms Respiratory: Reports: no symptoms Gastrointestinal/Abdominal: Reports: poor appetite Genitourinary: Reports: no symptoms Neurologic/Psychiatric: Reports: no symptoms Endocrine: Reports: no symptoms Hematologic/Lymphatic: Reports: anemia Allergies: Coded Allergies: BENAZEPRIL (Unverified Allergy, Unknown, 04/19/16) CODEINE (Unverified Allergy, Unknown, 04/19/16) HYDROCHLOROTHIAZIDE (Unverified Allergy, Unknown, 06/14/16) PENICILLINS (Unverified Allergy, Unknown, 04/19/16) PROPOXYPHENE (Unverified Allergy, Unknown, 04/19/16) Subjective Patient not bleeding. Has refused several meds Objective Last 24 Hour Vital Signs Date Time Temp Pulse Resp B/P Pulse Ox O2 Delivery O2 Flow Rate FiO2 06/20/16 16:00 97.8 68 20 120/70 97 Room Air 06/20/16 14:35 88 16 Room Air 21 06/20/16 12:49 97.2 81 20 126/82 95 Room Air 06/20/16 12:45 96 06/20/16 08:37 74 06/20/16 08:16 97.0 81 20 136/94 96 Room Air 06/20/16 04:24 85 06/20/16 04:00 97.7 80 20 134/88 97 Room Air 06/20/16 00:00 97.9 89 20 125/89 97 Room Air 06/19/16 23:43 82 06/19/16 20:01 90 20 Room Air 21 06/19/16 20:00 97.3 82 14 123/69 99 Room Air 06/19/16 20:00 98 Intake and Output 06/19/16 06/20/16 19:00 07:00 Intake Total 660 ml 240 ml Balance 660 ml 240 ml Intake Oral 560 ml 240 ml IV Total 100 ml # Voids 2 4 # Bowel Movements 1 Laboratory Tests 06/20/16 07:20: White Blood Count 10.3, Red Blood Count 4.36, Hemoglobin 12.6, Hematocrit 40.6, Mean Corpuscular Volume 93, Mean Corpuscular Hemoglobin 29.0, Mean Corpuscular Hemoglobin Concent 31.1L, Red Cell Distribution Width 14.9H, Platelet Count 227 , Mean Platelet Volume 6.0L, Neutrophils (%) (Auto) 81.5H, Lymphocytes (%) (Auto ) 12.5L, Monocytes (%) (Auto) 5.2, Eosinophils (%) (Auto) 0.1, Basophils (%) ( Auto) 0.7, Prothrombin Time 24.0H, Prothromb Time International Ratio 2.3H, Sodium Level 142, Potassium Level 4.4, Chloride Level 98, Carbon Dioxide Level 32H, Anion Gap 12, Blood Urea Nitrogen 26H, Creatinine 1.0H, Estimat Glomerular Filtration Rate > 60, Glucose Level 182H, Calcium Level 9.3 Height (Feet): 5 Height (Inches): 7.00 Weight (Pounds): 202 General Appearance: no apparent distress EENT: TMs normal Neck: supple Cardiovascular: normal rate Respiratory/Chest: lungs clear Abdomen: soft Genitourinary/Rectal: normal rectal exam Extremities: non-tender Edema: no edema noted Leg (L), no edema noted Leg (R) Edema: mild edema Neurologic: alert Skin: warm/dry Brandon Gan Jun 20, 2016 16:31
--- NOTE | 2016-06-20 17:26 | Pulmonology Progress Note ---
Assessment/Plan Problems: (1) Acute asthma exacerbation (2) Lung metastases (3) Dyspnea (4) Cardiomyopathy (5) Anemia, chronic disease Assessment/Plan improving dc solumedrol sputum negative check electrolytes might go home n Subjective Interval Events: no new compalins Allergies: Coded Allergies: BENAZEPRIL (Unverified Allergy, Unknown, 04/19/16) CODEINE (Unverified Allergy, Unknown, 04/19/16) HYDROCHLOROTHIAZIDE (Unverified Allergy, Unknown, 06/14/16) PENICILLINS (Unverified Allergy, Unknown, 04/19/16) PROPOXYPHENE (Unverified Allergy, Unknown, 04/19/16) Objective Last 24 Hour Vital Signs Date Time Temp Pulse Resp B/P Pulse Ox O2 Delivery O2 Flow Rate FiO2 06/20/16 16:00 97.8 68 20 120/70 97 Room Air 06/20/16 14:35 88 16 Room Air 21 06/20/16 12:49 97.2 81 20 126/82 95 Room Air 06/20/16 12:45 96 06/20/16 08:37 74 06/20/16 08:16 97.0 81 20 136/94 96 Room Air 06/20/16 04:24 85 06/20/16 04:00 97.7 80 20 134/88 97 Room Air 06/20/16 00:00 97.9 89 20 125/89 97 Room Air 06/19/16 23:43 82 06/19/16 20:01 90 20 Room Air 21 06/19/16 20:00 97.3 82 14 123/69 99 Room Air 06/19/16 20:00 98 Intake and Output 06/19/16 06/20/16 19:00 07:00 Intake Total 660 ml 240 ml Balance 660 ml 240 ml Intake Oral 560 ml 240 ml IV Total 100 ml # Voids 2 4 # Bowel Movements 1 HEENT: normocephalic, atraumatic Respiratory/Chest: chest wall non-tender, decreased breath sounds, accessory muscle use Abdomen: normal bowel sounds, soft, non tender Extremities: no cyanosis Skin: no rash Laboratory Tests 06/20/16 07:20: White Blood Count 10.3, Red Blood Count 4.36, Hemoglobin 12.6, Hematocrit 40.6, Mean Corpuscular Volume 93, Mean Corpuscular Hemoglobin 29.0, Mean Corpuscular Hemoglobin Concent 31.1L, Red Cell Distribution Width 14.9H, Platelet Count 227 , Mean Platelet Volume 6.0L, Neutrophils (%) (Auto) 81.5H, Lymphocytes (%) (Auto ) 12.5L, Monocytes (%) (Auto) 5.2, Eosinophils (%) (Auto) 0.1, Basophils (%) ( Auto) 0.7, Prothrombin Time 24.0H, Prothromb Time International Ratio 2.3H, Sodium Level 142, Potassium Level 4.4, Chloride Level 98, Carbon Dioxide Level 32H, Anion Gap 12, Blood Urea Nitrogen 26H, Creatinine 1.0H, Estimat Glomerular Filtration Rate > 60, Glucose Level 182H, Calcium Level 9.3 Current Medications Medications (Trade) Dose Ordered Sig/Adolfo Route PRN Reason Start Time Stop Time Status Last Admin Dose Admin Acetaminophen (Tylenol) 1,000 mg Q6H PRN ORAL Mild Pain/Temp > 100.5 06/14/16 23:15 07/14/16 23:14 06/20/16 16:25 Bupropion HCl (Wellbutrin XL) 150 mg Q24H ORAL 06/15/16 09:00 07/15/16 08:59 06/20/16 08:44 Dextrose (Dextrose 50%) STAT PRN IV Hypoglycemia 06/14/16 23:15 07/14/16 23:14 Fexofenadine HCl (Joana) 60 mg TWICE A DAY ORAL 06/15/16 09:00 07/15/16 08:59 06/20/16 08:44 Furosemide (Lasix) 40 mg DAILY ORAL 06/20/16 09:00 07/20/16 08:59 06/20/16 08:45 Gabapentin (Neurontin) 300 mg BEDTIME ORAL 06/15/16 21:00 07/15/16 20:59 06/19/16 20:37 Hydroxychloroquine Sulfate (Plaquenil) 400 mg DAILY ORAL 06/15/16 09:00 07/15/16 08:59 06/20/16 08:44 Insulin Aspart (NovoLOG) BEFORE MEALS AND HS SUBQ 06/15/16 06:30 07/15/16 06:29 06/20/16 16:28 Levofloxacin (Levaquin) 100 ml @ 100 mls/hr Q24H IVPB 06/15/16 16:00 06/22/16 15:59 06/20/16 16:26 Magnesium Oxide (Mag-Ox 400mg) 400 mg BID ORAL 06/15/16 09:00 07/15/16 08:59 06/20/16 08:45 Methylprednisolone Sodium Succinate (Solu-MEDROL) 60 mg EVERY 12 HOURS IVP 06/16/16 21:00 07/16/16 20:59 06/20/16 08:45 Non-Formulary Medication (Non-Formulary Med) 1 ea DAILY ORAL 06/15/16 09:00 07/15/16 08:59 UNV Olanzapine 10 mg 10 mg QHS ORAL 06/15/16 01:00 07/15/16 00:59 06/19/16 20:36 Pravastatin Sodium (Pravachol) 20 mg BEDTIME ORAL 06/15/16 21:00 07/15/16 20:59 06/19/16 20:37 Sertraline HCl (Zoloft) 200 mg DAILY ORAL 06/15/16 09:00 07/15/16 08:59 06/20/16 08:44 Spironolactone (Aldactone) 25 mg DAILY ORAL 06/15/16 09:00 07/15/16 08:59 06/20/16 08:45 Warfarin Sodium (Coumadin per pharmacy) 1 ea DAILY PRN MISC Per rx protocol 06/14/16 23:15 07/14/16 23:14 Warfarin Sodium/ Warfarin Sodium (Coumadin/ Coumadin) 3.5 mg COUMADIN ORAL 06/17/16 17:00 06/22/16 16:59 06/19/16 17:11 BUNNY ZURITA Jun 20, 2016 17:26
[2016-06-20] MEDS: WARFARIN SOD ORAL SCH ×2 (17:46)
--- NOTE | 2016-06-20 17:47 | Internal Med Progress Note ---
Subjective Date of Service: Jun 20, 2016 Physician Name Sandra Styles Attending Physician Gen Pena MD Current Medications Medications (Trade) Dose Ordered Sig/Adolfo Route PRN Reason Start Time Stop Time Status Last Admin Dose Admin Acetaminophen (Tylenol) 1,000 mg Q6H PRN ORAL Mild Pain/Temp > 100.5 06/14/16 23:15 07/14/16 23:14 06/20/16 16:25 Bupropion HCl (Wellbutrin XL) 150 mg Q24H ORAL 06/15/16 09:00 07/15/16 08:59 06/20/16 08:44 Dextrose (Dextrose 50%) STAT PRN IV Hypoglycemia 06/14/16 23:15 07/14/16 23:14 Fexofenadine HCl (Joana) 60 mg TWICE A DAY ORAL 06/15/16 09:00 07/15/16 08:59 06/20/16 08:44 Furosemide (Lasix) 40 mg DAILY ORAL 06/20/16 09:00 07/20/16 08:59 06/20/16 08:45 Gabapentin (Neurontin) 300 mg BEDTIME ORAL 06/15/16 21:00 07/15/16 20:59 06/19/16 20:37 Hydroxychloroquine Sulfate (Plaquenil) 400 mg DAILY ORAL 06/15/16 09:00 07/15/16 08:59 06/20/16 08:44 Insulin Aspart (NovoLOG) BEFORE MEALS AND HS SUBQ 06/15/16 06:30 07/15/16 06:29 06/20/16 16:28 Levofloxacin (Levaquin) 100 ml @ 100 mls/hr Q24H IVPB 06/15/16 16:00 06/22/16 15:59 06/20/16 16:26 Magnesium Oxide (Mag-Ox 400mg) 400 mg BID ORAL 06/15/16 09:00 07/15/16 08:59 06/20/16 08:45 Non-Formulary Medication (Non-Formulary Med) 1 ea DAILY ORAL 06/15/16 09:00 07/15/16 08:59 UNV Olanzapine 10 mg 10 mg QHS ORAL 06/15/16 01:00 07/15/16 00:59 06/19/16 20:36 Pravastatin Sodium (Pravachol) 20 mg BEDTIME ORAL 06/15/16 21:00 07/15/16 20:59 06/19/16 20:37 Sertraline HCl (Zoloft) 200 mg DAILY ORAL 06/15/16 09:00 07/15/16 08:59 06/20/16 08:44 Spironolactone (Aldactone) 25 mg DAILY ORAL 06/15/16 09:00 07/15/16 08:59 06/20/16 08:45 Warfarin Sodium (Coumadin per pharmacy) 1 ea DAILY PRN MISC Per rx protocol 06/14/16 23:15 07/14/16 23:14 Warfarin Sodium/ Warfarin Sodium (Coumadin/ Coumadin) 3.5 mg COUMADIN ORAL 06/17/16 17:00 06/22/16 16:59 06/19/16 17:11 Allergies: Coded Allergies: BENAZEPRIL (Unverified Allergy, Unknown, 04/19/16) CODEINE (Unverified Allergy, Unknown, 04/19/16) HYDROCHLOROTHIAZIDE (Unverified Allergy, Unknown, 06/14/16) PENICILLINS (Unverified Allergy, Unknown, 04/19/16) PROPOXYPHENE (Unverified Allergy, Unknown, 04/19/16) ROS Limited/Unobtainable: No Constitutional: Reports: no symptoms HEENT: Reports: no symptoms Cardiovascular: Reports: no symptoms Respiratory: Reports: shortness of breath Gastrointestinal/Abdominal: Reports: no symptoms Genitourinary: Reports: no symptoms Neurologic/Psychiatric: Reports: no symptoms Subjective 66 YO F with metastatic brease cancer admitted with shortness of breath. Cover for Int Quinten-Dr Pena. C/O shortness of breath. Objective Last Vital Signs Date Time Temp Pulse Resp B/P Pulse Ox O2 Delivery O2 Flow Rate FiO2 06/20/16 17:24 97.8 06/20/16 16:00 68 20 120/70 97 Room Air 06/20/16 14:35 21 06/17/16 04:22 2.0 Laboratory Tests Test 06/20/16 07:20 White Blood Count 10.3 K/UL (4.8-10.8) Red Blood Count 4.36 M/UL (4.20-5.40) Hemoglobin 12.6 G/DL (12.0-16.0) Hematocrit 40.6 % (37.0-47.0) Mean Corpuscular Volume 93 FL (80-99) Mean Corpuscular Hemoglobin 29.0 PG (27.0-31.0) Mean Corpuscular Hemoglobin Concent 31.1 G/DL (32.0-36.0) L Red Cell Distribution Width 14.9 % (11.6-14.8) H Platelet Count 227 K/UL (150-450) Mean Platelet Volume 6.0 FL (6.5-10.1) L Neutrophils (%) (Auto) 81.5 % (45.0-75.0) H Lymphocytes (%) (Auto) 12.5 % (20.0-45.0) L Monocytes (%) (Auto) 5.2 % (1.0-10.0) Eosinophils (%) (Auto) 0.1 % (0.0-3.0) Basophils (%) (Auto) 0.7 % (0.0-2.0) Prothrombin Time 24.0 SEC (9.30-11.50) H Prothromb Time International Ratio 2.3 (0.9-1.1) H Sodium Level 142 mEQ/L (135-145) Potassium Level 4.4 mEQ/L (3.4-4.9) Chloride Level 98 mEQ/L (98-107) Carbon Dioxide Level 32 mEQ/L (20-30) H Anion Gap 12 (5-15) Blood Urea Nitrogen 26 mg/dL (7-23) H Creatinine 1.0 mg/dL (0.5-0.9) H Estimat Glomerular Filtration Rate > 60 mL/min (>60) Glucose Level 182 mg/dL (74-106) H Calcium Level 9.3 mg/dL (8.6-10.2) Intake and Output 06/19/16 06/20/16 19:00 07:00 Intake Total 660 ml 240 ml Balance 660 ml 240 ml Intake Oral 560 ml 240 ml IV Total 100 ml # Voids 2 4 # Bowel Movements 1 Objective General Appearance: WD/WN, no apparent distress, alert EENT: PERRL/EOMI, normal ENT inspection Neck: non-tender, normal alignment, supple, normal inspection Cardiovascular: normal peripheral pulses, normal rate, regular rhythm, no gallop/murmur, no JVD Respiratory/Chest: chest wall non-tender, crackles/rales, rhonchi - bilaterally , expiratory wheezing Abdomen: normal bowel sounds, non tender, soft, no organomegaly, no mass Extremities: normal range of motion 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 See pulm and cardiology note (3) HTN (hypertension) (4) Diabetes mellitus Assessment & Plan: Cont novolog sliding scale. (5) CHF (congestive heart failure) (6) Breast cancer Assessment & Plan: See onc note. (7) Lung metastases (8) Chest pain Assessment & Plan: See cardiology note. (9) Hypercholesteremia (10) Lymphedema of left arm Assessment & Plan: Chronic secondary to breast cancer. (11) Acute asthma exacerbation Assessment & Plan: Continue duoneb, IV levaquin and IV solumedrol per pulmonary Status: progressing Assessment/Plan Discharge to [facility] on hold-patient wants to D/C in [place] Kim Jun 20, 2016 17:47
[2016-06-20 20:00] VITALS: BP 121/82
--- NOTE | 2016-06-20 23:13 | Cardiology Progress Note ---
Assessment/Plan Assessment/Plan 1. Multifocal atrial rhythm with controlled ventricular response. 2. Acute systolic and diastolic heart failure with restrictive LV physiology, continue lasix, digoxin and aldactone, allergic to ACEI. 3. Nonischemic cardiomyopathy with left ventricular ejection fraction estimated to be around 15-20%. 4. History of hypertension. 5. History of hypercholesterolemia. 6. LV thrombus on warfarin, keep INR at 2-3. Subjective Subjective Multifocal atrial rhythm at 86. Objective Last 24 Hour Vital Signs Date Time Temp Pulse Resp B/P Pulse Ox O2 Delivery O2 Flow Rate FiO2 06/20/16 20:05 81 18 Room Air 21 06/20/16 20:00 83 06/20/16 20:00 97.6 83 22 121/82 98 Room Air 06/20/16 17:24 97.8 06/20/16 16:00 84 06/20/16 16:00 97.8 68 20 120/70 97 Room Air 06/20/16 14:35 88 16 Room Air 21 06/20/16 12:49 97.2 81 20 126/82 95 Room Air 06/20/16 12:45 96 06/20/16 08:37 74 06/20/16 08:16 97.0 81 20 136/94 96 Room Air 06/20/16 04:24 85 06/20/16 04:00 97.7 80 20 134/88 97 Room Air 06/20/16 00:00 97.9 89 20 125/89 97 Room Air 06/19/16 23:43 82 Intake and Output 06/19/16 06/20/16 19:00 07:00 Intake Total 660 ml 240 ml Balance 660 ml 240 ml Intake Oral 560 ml 240 ml IV Total 100 ml # Voids 2 4 # Bowel Movements 1 2D Echo: Global LV HK worse at anteroseptal wall, EF 25%, RAP 20, PAP 72, Mod MR Laboratory Tests Test 06/20/16 07:20 White Blood Count 10.3 K/UL (4.8-10.8) Red Blood Count 4.36 M/UL (4.20-5.40) Hemoglobin 12.6 G/DL (12.0-16.0) Hematocrit 40.6 % (37.0-47.0) Mean Corpuscular Volume 93 FL (80-99) Mean Corpuscular Hemoglobin 29.0 PG (27.0-31.0) Mean Corpuscular Hemoglobin Concent 31.1 G/DL (32.0-36.0) L Red Cell Distribution Width 14.9 % (11.6-14.8) H Platelet Count 227 K/UL (150-450) Mean Platelet Volume 6.0 FL (6.5-10.1) L Neutrophils (%) (Auto) 81.5 % (45.0-75.0) H Lymphocytes (%) (Auto) 12.5 % (20.0-45.0) L Monocytes (%) (Auto) 5.2 % (1.0-10.0) Eosinophils (%) (Auto) 0.1 % (0.0-3.0) Basophils (%) (Auto) 0.7 % (0.0-2.0) Prothrombin Time 24.0 SEC (9.30-11.50) H Prothromb Time International Ratio 2.3 (0.9-1.1) H Sodium Level 142 mEQ/L (135-145) Potassium Level 4.4 mEQ/L (3.4-4.9) Chloride Level 98 mEQ/L (98-107) Carbon Dioxide Level 32 mEQ/L (20-30) H Anion Gap 12 (5-15) Blood Urea Nitrogen 26 mg/dL (7-23) H Creatinine 1.0 mg/dL (0.5-0.9) H Estimat Glomerular Filtration Rate > 60 mL/min (>60) Glucose Level 182 mg/dL (74-106) H Calcium Level 9.3 mg/dL (8.6-10.2) Objective GENERAL: The patient is a very unfortunate lady, in no apparent respiratory distress. HEENT: Atraumatic and normocephalic. Anicteric. Pupils are equal, round, and reactive to light and accommodation. Extraocular muscles are intact. NECK: JVP cannot be visualized due to obesity. No murmurs. CARDIOVASCULAR: There is a 2/6 mid systolic murmur at left sternal border. PMI is at fourth intercostal space in midclavicular line. No gallops or rubs. LUNGS: Clear to auscultation bilaterally. ABDOMEN: Soft, nontender, and nondistended. No hepatosplenomegaly. Positive bowel sounds. EXTREMITIES: Lower extremities, there is no evidence of peripheral edema, clubbing, or cyanosis. Left upper extremity is edematous. MISSY JOHNSON Jun 20, 2016 23:13
[2016-06-21 00:30] VITALS: BP 113/70
[2016-06-21 04:32] VITALS: BP 114/81
[2016-06-21] MEDS: NovoLOG Insulin Flexpen SUBQ SCH ×2 (05:59→11:30)
[2016-06-21 07:32] LABS: BASOPHILS % (AUTO) 0.9 % (0.0-2.0); EOSINOPHILS % (AUTO) 0.4 % (0.0-3.0); LYMPHOCYTES % (AUTO) 27.8 % (20.0-45.0); MEAN CORPUSCULAR HEMOGLOBIN 27.9 PG (27.0-31.0); MEAN CORPUSCULAR HGB CONC 30.7 G/DL (32.0-36.0); MEAN CORPUSCULAR VOLUME 91 FL (80-99); MEAN PLATELET VOLUME 5.8 FL (6.5-10.1); NEUTROPHILS % (AUTO) 64.9 % (45.0-75.0); PLATELET COUNT 225 K/UL (150-450); RED BLOOD COUNT 4.35 M/UL (4.20-5.40); RED CELL DISTRIBUTION WIDTH 14.7 % (11.6-14.8); WHITE BLOOD COUNT 9.2 K/UL (4.8-10.8)
[2016-06-21 07:41] LABS: ALANINE AMINOTRANSFERASE 28 U/L (3-33); ALBUMIN/GLOBULIN RATIO 1.3 (1.0-2.7); ANION GAP 10 (5-15); ASPARTATE AMINO TRANSFERASE 16 U/L (5-40); CARBON DIOXIDE 32 mEQ/L (20-30); CHLORIDE 98 mEQ/L (98-107); CREATININE 0.9 mg/dL (0.5-0.9); GLOMERULAR FILTRATION RATE > 60 mL/min (>60); HEMOLYSIS 2; PHOSPHORUS 3.1 mg/dL (2.5-4.8); SODIUM 140 mEQ/L (135-145); TOTAL PROTEIN 5.8 g/dL (6.6-8.7)
[2016-06-21 07:45] LABS: INR 2.2 (0.9-1.1); PROTHROMBIN TIME 23.2 SEC (9.30-11.50)
[2016-06-21 08:33] VITALS: BP 136/75
[2016-06-21] MEDS: BuPROPion XL 150mg tab ORAL SCH (09:28)
[2016-06-21] MEDS: Magnesium Oxide 400mg tab ORAL SCH (09:28)
[2016-06-21] MEDS: Sertraline 50mg tab ORAL SCH (09:29)
[2016-06-21] MEDS: Spironolactone 25mg tab ORAL SCH (09:29)
[2016-06-21] MEDS: Furosemide 40mg tab ORAL SCH (09:30)
--- NOTE | 2016-06-21 09:40 | General Progress Note ---
Assessment/Plan Assessment/Plan Assessment 1. Anemia 2/2 malignancy of breast ca with lung mets, improved 2. 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 Has been on Chemotherapy 3. Anemia 2/2 chronic disease 4. Thrombus in the left Ventricle - on coumadin 5. Shortness of Breath likely due to pleural effusion and metastasis 6. Shortness of breath due to asthma exacerbation 7. Diabetes 8. Cardiomegaly 9. Hypertension 10. Dyslipidemia Recommendations: - Continue on Coumadin - Maintain INR 2-3 - Transfusion to hgb >7.5 - GI ppx zantac - DVT ppx with coumadin - Outpatient oncology f/u - DW Staff Sincerely, Brandon Gan MD Subjective Constitutional: Reports: no symptoms HEENT: Reports: no symptoms Cardiovascular: Reports: no symptoms Respiratory: Reports: no symptoms Gastrointestinal/Abdominal: Reports: no symptoms Genitourinary: Reports: no symptoms Neurologic/Psychiatric: Reports: no symptoms Endocrine: Reports: no symptoms Hematologic/Lymphatic: Reports: anemia Allergies: Coded Allergies: BENAZEPRIL (Unverified Allergy, Unknown, 04/19/16) CODEINE (Unverified Allergy, Unknown, 04/19/16) HYDROCHLOROTHIAZIDE (Unverified Allergy, Unknown, 06/14/16) PENICILLINS (Unverified Allergy, Unknown, 04/19/16) PROPOXYPHENE (Unverified Allergy, Unknown, 04/19/16) Subjective Patient not bleeding.Refused several meds Objective Last 24 Hour Vital Signs Date Time Temp Pulse Resp B/P Pulse Ox O2 Delivery O2 Flow Rate FiO2 06/21/16 08:33 97.0 85 20 136/75 99 Room Air 06/21/16 07:47 91 18 Room Air 21 06/21/16 04:32 98.0 75 20 114/81 97 Room Air 06/21/16 03:59 73 06/21/16 00:30 97.0 84 20 113/70 94 Room Air 06/20/16 23:50 83 06/20/16 20:05 81 18 Room Air 21 06/20/16 20:00 83 06/20/16 20:00 97.6 83 22 121/82 98 Room Air 06/20/16 17:24 97.8 06/20/16 16:00 84 06/20/16 16:00 97.8 68 20 120/70 97 Room Air 06/20/16 14:35 88 16 Room Air 21 06/20/16 12:49 97.2 81 20 126/82 95 Room Air 06/20/16 12:45 96 Intake and Output 06/20/16 06/21/16 19:00 07:00 Intake Total 340 ml 410 ml Balance 340 ml 410 ml Intake Oral 240 ml 410 ml IV Total 100 ml # Voids 2 3 Laboratory Tests 06/21/16 05:35: White Blood Count 9.2, Red Blood Count 4.35, Hemoglobin 12.1, Hematocrit 39.5, Mean Corpuscular Volume 91, Mean Corpuscular Hemoglobin 27.9, Mean Corpuscular Hemoglobin Concent 30.7L, Red Cell Distribution Width 14.7, Platelet Count 225, Mean Platelet Volume 5.8L, Neutrophils (%) (Auto) 64.9, Lymphocytes (%) (Auto) 27.8, Monocytes (%) (Auto) 6.0, Eosinophils (%) (Auto) 0.4, Basophils (%) (Auto ) 0.9, Prothrombin Time 23.2H, Prothromb Time International Ratio 2.2H, Sodium Level 140, Potassium Level 4.0, Chloride Level 98, Carbon Dioxide Level 32H, Anion Gap 10, Blood Urea Nitrogen 24H, Creatinine 0.9, Estimat Glomerular Filtration Rate > 60, Glucose Level 145H, Calcium Level 9.0, Phosphorus Level 3.1, Magnesium Level 2.0, Total Bilirubin 0.4, Aspartate Amino Transf (AST/SGOT ) 16, Alanine Aminotransferase (ALT/SGPT) 28, Alkaline Phosphatase 60, Total Protein 5.8L, Albumin 3.3L, Globulin 2.5, Albumin/Globulin Ratio 1.3 Height (Feet): 5 Height (Inches): 7.00 Weight (Pounds): 201 General Appearance: alert EENT: normal ENT inspection Neck: non-tender Cardiovascular: normal rate Respiratory/Chest: lungs clear Abdomen: soft Extremities: non-tender Edema: 1+ Leg (L), 1+ Leg (R) Edema: mild edema Neurologic: oriented x 3 Skin: warm/dry Brandon Gan Jun 21, 2016 09:40
[2016-06-21] MEDS ORDERED: FUROSEMIDE40 MG ORAL (11:49)
[2016-06-21] MEDS ORDERED: NOVOLOG100 UNITS1 SUBQ (11:49)
[2016-06-21 11:52] VITALS: BP 135/90
--- NOTE | 2016-06-21 11:55 | Discharge Summary ---
Discharge Summary Hospital Course Date of Admission Jun 14, 2016 at 17:25 Date of Discharge Admitting Diagnosis CHF HPI Aster Garcia is a 66 year old female who was admitted on Jun 14, 2016 at 17:25 for Congestive Heart Failure Hospital Course Dictated for Int Med-Dr Pena no. [id number]. Discharge Discharge Disposition Patient was discharged to SNF/Subacute Facility(03) Discharge Diagnoses: SANDRA CASTILLO Jun 21, 2016 11:55
--- NOTE | 2016-06-21 12:40 | Wound Care Consultation ---
Wound Assessment Wound Assessment : Wound Number: #1 Wound Present on Admission: No New Wound: Yes Status Change of Wound: No Wound Location Body Site Modif: mid, anterior Wound Location Body Site: chest Wound Type: other - scattered skin tears without flap. skin tears are resolving have decreased in size, treatment is affective. no s/s of infection. Sylvain Test: Does not Sylvain Wound Thickness: Partial Thickness Percent of Wound [place]/Red: 100 Wound Drainage Amount: None Wound Drainage Odor: None/Absent Tissue Surrounding Wound: Erythemic Wound General Appearance: Reddened - 100% pink wound bed Wound Comment upon reassessment noted good progress to scattered skin tear sites. no s/s of infection, no c/o pain to site, noted resolving skin tears, have decreased in size.current treatment is effective. SCOTT ANTUNEZ Jun 21, 2016 12:40
[2016-06-21] MEDS ORDERED: Tubing IV Secondary IV ONE (14:59)
--- NOTE | 2016-06-21 15:31 | Pulmonology Progress Note ---
Assessment/Plan Problems: (1) Acute asthma exacerbation (2) Lung metastases (3) Dyspnea (4) Cardiomyopathy (5) Anemia, chronic disease Assessment/Plan improving of sterids sputum negative check electrolytes ok to go home today Subjective ROS Limited/Unobtainable: No Constitutional: Reports: no symptoms HEENT: Repors: no symptoms Respiratory: Reports: no symptoms Cardiovascular: Reports: no symptoms Allergies: Coded Allergies: BENAZEPRIL (Unverified Allergy, Unknown, 04/19/16) CODEINE (Unverified Allergy, Unknown, 04/19/16) HYDROCHLOROTHIAZIDE (Unverified Allergy, Unknown, 06/14/16) PENICILLINS (Unverified Allergy, Unknown, 04/19/16) PROPOXYPHENE (Unverified Allergy, Unknown, 04/19/16) Objective Last 24 Hour Vital Signs Date Time Temp Pulse Resp B/P Pulse Ox O2 Delivery O2 Flow Rate FiO2 06/21/16 11:52 97.0 80 20 135/90 99 Room Air 06/21/16 09:00 85 06/21/16 08:33 97.0 85 20 136/75 99 Room Air 06/21/16 07:47 91 18 Room Air 21 06/21/16 04:32 98.0 75 20 114/81 97 Room Air 06/21/16 03:59 73 06/21/16 00:30 97.0 84 20 113/70 94 Room Air 06/20/16 23:50 83 06/20/16 20:05 81 18 Room Air 21 06/20/16 20:00 83 06/20/16 20:00 97.6 83 22 121/82 98 Room Air 06/20/16 17:24 97.8 06/20/16 16:00 84 06/20/16 16:00 97.8 68 20 120/70 97 Room Air Intake and Output 06/20/16 06/21/16 19:00 07:00 Intake Total 340 ml 410 ml Balance 340 ml 410 ml Intake Oral 240 ml 410 ml IV Total 100 ml # Voids 2 3 HEENT: normocephalic Respiratory/Chest: chest wall non-tender, normal breath sounds Cardiovascular: normal peripheral pulses, regularly irregular Abdomen: normal bowel sounds, soft, non tender Extremities: no cyanosis Skin: no lesions 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 Laboratory Tests 06/21/16 05:35: White Blood Count 9.2, Red Blood Count 4.35, Hemoglobin 12.1, Hematocrit 39.5, Mean Corpuscular Volume 91, Mean Corpuscular Hemoglobin 27.9, Mean Corpuscular Hemoglobin Concent 30.7L, Red Cell Distribution Width 14.7, Platelet Count 225, Mean Platelet Volume 5.8L, Neutrophils (%) (Auto) 64.9, Lymphocytes (%) (Auto) 27.8, Monocytes (%) (Auto) 6.0, Eosinophils (%) (Auto) 0.4, Basophils (%) (Auto ) 0.9, Prothrombin Time 23.2H, Prothromb Time International Ratio 2.2H, Sodium Level 140, Potassium Level 4.0, Chloride Level 98, Carbon Dioxide Level 32H, Anion Gap 10, Blood Urea Nitrogen 24H, Creatinine 0.9, Estimat Glomerular Filtration Rate > 60, Glucose Level 145H, Calcium Level 9.0, Phosphorus Level 3.1, Magnesium Level 2.0, Total Bilirubin 0.4, Aspartate Amino Transf (AST/SGOT ) 16, Alanine Aminotransferase (ALT/SGPT) 28, Alkaline Phosphatase 60, Total Protein 5.8L, Albumin 3.3L, Globulin 2.5, Albumin/Globulin Ratio 1.3 BUNNY ZURITA Jun 21, 2016 15:31
--- NOTE | 2016-06-22 07:27 | Discharge Summary ---
DATE OF ADMISSION: 06/14/2016 DATE OF DISCHARGE: 06/21/2016 ADMITTING DIAGNOSES: 1. Shortness of breath. 2. Congestive heart failure. 3. Breast cancer with metastases. 4. Chest pain. 5. Diabetes type 2. 6. Hypertension. 7. Hypercholesterolemia. 8. Chronic low back pain. DISCHARGE DIAGNOSES: 1. Shortness of breath. 2. Congestive heart failure. 3. Breast cancer with metastases. 4. Chest pain. 5. Diabetes type 2. 6. Hypertension. 7. Hypercholesterolemia. 8. Chronic low back pain. HOSPITAL COURSE BY PROBLEM LIST: 1. Shortness of breath. This is thought to be secondary to congestive heart failure. A Pulmonary consultation was obtained with Dr. Jorge. The patient underwent nebulizer treatments with DuoNeb. The patient is to follow up with Dr. Jorge as an outpatient. 2. Congestive heart failure. Cardiology consultation was obtained with Dr. Marin Escalera. Echocardiogram revealed an ejection fraction of 15% to 20%. The patient is to follow up with Dr. Escalera as an outpatient. The patient received intravenous Lasix during the hospitalization. Congestive heart failure has now resolved. 3. Breast cancer with metastases to the lungs. An Oncology consultation was obtained with Dr. Gan. The patient is to follow up with Dr. Gan as an outpatient. 4. Chest pain. This was thought to be secondary to congestive heart failure as above. 5. Diabetes type 2. The patient remained on NovoLog sliding scale q.a.c. and q.h.s. The patient is to continue this upon transferred to [facility]. 6. Hypertension. The patient remained on spironolactone and Lasix. Blood pressure is well controlled during the hospitalization. 7. Hypercholesterolemia. The patient remained on Zocor during the hospitalization. The patient is to follow up with her primary care physician. 8. Chronic low back pain. DISCHARGE MEDICATIONS: Please refer to discharge medication list. DISCHARGE INSTRUCTIONS: 1. The patient is discharged to [facility] today 06/21/2016. 2. The patient is to follow up with her primary care physician in one week. Balta Styles M.D. DR: YAZMIN JOB#: [id number] CC:
--- NOTE | 2016-07-20 14:31 | Cardiology Report ---
APPROVED REPORT EXAM: Two-dimensional and M-mode echocardiogram with Doppler and color Doppler. INDICATION Congestive Heart Failure M-Mode DIMENSIONS IVSd1.5 (0.7-1.1cm)Left Atrium (MM)4.9 (1.6-4.0cm) LVDd5.9 (3.5-5.6cm)Aortic Root2.4 (2.0-3.7cm) PWd1.1 (0.7-1.1cm)Aortic Cusp Exc.1.8 (1.5-2.0cm) LVDs5.1 (2.5-4.0cm) PWs1.5 cm Moderate left ventricular enlargement. Global left ventricular wall hypokinesis. Left ventricular ejection fraction estimated to be 25%. Mild left ventricular hypertrophy. No evidence of pericardial effusion. Possible large pleural effusion. Mild bi-atrial and right ventricular enlargment by 2D. Mild focal aortic valve sclerosis with adequate cusp excursion. Moderately thickened mitral valve leaflets with normal excursion. Mild mitral annulus and aortic root calcification. Pulmonic valve not well visualized. Normal tricuspid valve structure. IVC dilated at 3.0 cm without physiologic collapse suggestive RAP at least 20 mmHg. A color flow and spectral Doppler study was performed and revealed: Trace aortic regurgitation. Moderate mitral regurgitation. Left Ventricular diastolic function not determined due to A-FIB. Moderate to severe tricuspid regurgitation. Tricuspid systolic velocities suggests peak right ventricular systolic pressure 72mmHg, consistent with severe pulmonary hypertension. Mild pulmonic regurgitation present.
--- NOTE | 2016-07-26 23:53 | Cardiology Report ---
APPROVED REPORT EKG Measurement Heart [id number] Sinus rhythm with premature atrial complexes Septal infarct, age undetermined Nonspecific T wave abnormality Abnormal ECG
== END 2016-06-21 15:00 | DRG 292 ==
LOC: EDBD 16:45 → EMR 17:23 → 2E 17:25 → EDBEDREQ 19:57 → 2E 06-17 06:55
DX: I50.41 Acute combined systolic (congestive) and diastolic (congestive) heart failure (principal); J45.901 Unspecified asthma with (acute) exacerbation; C78.00 Secondary malignant neoplasm of unspecified lung; I51.3 Intracardiac thrombosis, not elsewhere classified; I42.8 Other cardiomyopathies; C79.31 Secondary malignant neoplasm of brain; I10 Essential (primary) hypertension; E78.00 Pure hypercholesterolemia, unspecified; M54.5 Low back pain; D63.0 Anemia in neoplastic disease; G89.29 Other chronic pain; E11.9 Type 2 diabetes mellitus without complications; Z85.3 Personal history of malignant neoplasm of breast; Z88.6 Allergy status to analgesic agent; Z88.0 Allergy status to penicillin; Z88.8 Allergy status to other drugs, medicaments and biological substances; Z79.899 Other long term (current) drug therapy; I25.10 Atherosclerotic heart disease of native coronary artery without angina pectoris; I89.0 Lymphedema, not elsewhere classified; Z79.01 Long term (current) use of anticoagulants
CPT/HCPCS: 36415; 36600; 71010; 80048; 80053; 81003; 82550; 82728; 82803; 82962; 83540; 83550; 83735; 83880; 84100; 84484; 85007; 85025; 85044; 85060; 85610; 85730; 87070; 87205; 93005; 93306; 94640; 94664; J1815; J7620